=== PATIENT | male | born 2000 | race Caucasian/White ===

== ENCOUNTER 2020-11-03 16:23 | Emergency (ER) | payer MEDICAID, SELFPAY ==
--- NOTE | ~2020-11-03 | CT_ITS ---
EXAMINATION: CT ABDOMEN AND PELVIS WITHOUT CONTRAST CLINICAL INFORMATION: Bilateral flank pain COMPARISON: CT pelvis /2019 TECHNIQUE: Multidetector volumetric imaging was performed from the superior aspect of the liver through the pubic symphysis. Sagittal and coronal reformatted images were obtained on the technologist's workstation. This CT examination was performed using dose optimization techniques as appropriate, variously including the following: *Automated exposure control *Adjustment of mA and/or kV according to patient size (this includes techniques or standardized protocols for targeted exams where dose is matched to indication/reason for exam; i.e. extremities or head) *Use of iterative reconstruction technique DLP: 449 mGy-cm FINDINGS: LUNG BASES: The visualized lung bases are unremarkable. LIVER, GALLBLADDER, AND BILIARY TREE: The liver is normal in size, shape, and attenuation. No focal hepatic lesion or biliary ductal dilatation is present. The gallbladder is unremarkable with no evidence of radiopaque gallstones, gallbladder wall thickening, or obvious pericholecystic inflammatory changes. PANCREAS: Unremarkable. SPLEEN: Unremarkable. ADRENAL GLANDS: Unremarkable. KIDNEYS AND URETERS: The kidneys are normal in size, shape, and attenuation. No hydronephrosis, hydroureter, or calculi seen. No perinephric stranding. BLADDER: Unremarkable. GASTROINTESTINAL TRACT: Diverticular changes present in the colon without diverticulitis. The very proximal jejunal loops are minimally prominent loops and demonstrate some wall thickening. The small and large bowel are otherwise unremarkable. The appendix is none seen with certainty but there is no evidence of appendicitis. ABDOMINAL WALL: No significant hernia is appreciated. LYMPH NODES: No retroperitoneal lymphadenopathy. Bilateral small inguinal lymph nodes are present. VASCULAR: Unremarkable. PELVIC VISCERA: Prostate mildly prominent measuring 4.4 x 3.9 x 4.8 cm. Seminal vesicles appear normal. OSSEOUS STRUCTURES: Unremarkable. CT/CT abdomen pelvis wo con IMPRESSION: A cause for the bilateral flank pain has not been found. Incidental note made of some minimally prominent proximal jejunal loops, colonic diverticula without diverticulitis and mildly prominent prostate.
[2020-11-03 16:32] VITALS: BP 119/75; PULSE 71; RESP 16; TEMP 36.7; O2SAT 98; BMI 28.1
--- NOTE | 2020-11-03 19:28 | ED_ITS ---
HPI - Male Genitourinary General Chief complaint: Urogenital-Male Stated complaint: DISCOMFORT URINATING Time Seen by Provider: 11/03/20 19:25 Source: patient Mode of arrival: ambulatory Limitations: no limitations History of Present Illness HPI Narrative: Patient presents to the ED for dysuria for 5 days and bilateral flank pain for 2 weeks. Patient denies any hematuria. Patient denies any abdominal pain, nausea, or vomiting. Patient is known history of herpes, but denies any lesions. Patient denies any penile discharge or penile lesions. Related Data Previous Rx's Medication Instructions Recorded cephalexin 500 mg PO QID #28 cap 11/03/20 doxycycline hyclate 100 mg PO BID #14 cap 11/03/20 Allergies Allergy/AdvReac Type Severity Reaction Status Date / Time neostigmine [NEOSTIGMINE] Allergy Intermediate NAUSEA & Verified 11/03/20 21:41 VOMITING Review of Systems Review of Systems: Yes all other systems are reviewed and are negative Constitutional: Constitutional: Reports as per HPI and Reports no additional constitutional complaints Eyes: Eyes: Reports as per HPI and Reports no additional eye complaints ENT: Reports system reviewed and no additional complaints, except as documented and Reports as per HPI Cardiovascular: Cardiovascular: Reports as per HPI and Reports no additional cardiovascular complaints Respiratory: Respiratory: Reports as per HPI and Reports no additional respiratory complaints Gastrointestinal: Gastrointestinal: Reports as per HPI and Reports no additional gastrointestinal complaints Genitourinary: Genitourinary: Reports no additional male genitourinary complaints, Reports as per HPI and Reports dysuria Musculoskeletal: Musculoskeletal: Reports no additional musculoskeletal complaints and Reports as per HPI Neurologic: Reports system reviewed and no additional complaints, except as documented and Reports as per HPI Psychiatric: Psychiatric: Reports no additional psychiatric complaints and Reports as per HPI [facility] Past Medical History Medical History (Updated 11/03/20 @ 21:41 by DEON Robles) Herpes Surgical History (Updated 11/03/20 @ 16:35 by Maru Monteiro) H/O hernia repair Social History Social History Advance Directives: No Advance Directives Information Provided: No Physical Exam Vital Signs: Vital Signs: Last Vital Signs Temp 98.0 F 11/03/20 20:14 Pulse 52 11/03/20 20:14 Resp 16 11/03/20 20:14 BP 114/66 11/03/20 20:14 Pulse Ox 98 11/03/20 20:14 Body Mass Index 28.1 Const: General: cooperative, healthy appearing, comfortable, no acute distress, well developed, alert, awake and Physically active Orientation/consciousness: patient oriented x3 HENMT: Head: Yes normal to inspection, Yes No palpable skull fracture present, Yes normocephalic and Yes atraumatic Eyes: General: appearance normal, both eyes and all related structures Neck: Neck: Yes normal visual inspection, Yes full ROM, Yes no lymphadenopathy, Yes no meningeal signs, Yes trachea midline, Yes supple and No tender Chest: Chest palpation & inspection: normal inspection of the chest and normal palpation of entire chest wall Resp: Effort & Inspection: normal respiratory effort and able to speak in complete sentences Auscultation: clear to auscultation bilaterally Cardio: Jugular venous distension: no JVD Heart sounds: S1 normal heart sound present and S2 normal heart sound present GI: Inspection: Yes normal to inspection and No abdominal wall ecchymosis Palpation (GI): Soft to palpation, not firm, nontender, no guarding and not rigid : Other: Penile exam negative for any penile lesions, testicular swelling, penile discharge, testicular redness, scrotum swelling, or testicular tenderness on palpitation General: No CVA tenderness and Yes no CVA tenderness Back/Spine/Pelvis: Back: no CVA tenderness, No CVA tenderness and No back tenderness Skin: General skin exam: no rashes or lesions noted and elasticity normal Neuro: General: patient oriented x3, no meningeal signs and CN's II-XI intact bilaterally Cranial nerves: Yes CN's II-XII intact bilaterally Extrem: General: Yes normal to inspection and Yes full ROM Psych: Appearance: grossly normal, well kempt and not disheveled Course Course Course Narrative: Chlamydia/gonorrhea lab sent. UA sent. Patient was sent for CT scan abdomen pelvis rule out kidney stones. Reevaluation(s) Reevaluation #1: CT abdomen of the pelvis negative for kidney stones. CT&NG pending. UA positive for leuk esterase and white blood cell counts. Patient agreeable to be treated empirically for chlamydia/gonorrhea. Patient will be discharged with Keflex and doxycycline. MDM - Male Genitourinary MDM Narrative Medical decision making narrative: UTI/dysuria Lab Data Labs: Lab Results 11/03/20 Range/Units 19:41 Urine Color STRAW Urine Appearance CLEAR Urine pH 7.0 (5.0-8.0) Ur Specific Holden <= 1.005 (1.005-1.025) Urine Protein NEG (NEG-TRACE) MG/DL Urine Glucose (UA) NEG (NEG) MG/DL Urine Ketones NEG (NEG) MG/DL Urine Blood TRACE (NEG) Urine Nitrite NEG (NEG) Ur Leukocyte Esterase 1+ H (NEG) Urine RBC 0 (0) /HPF Urine WBC 10-14 H (0-4) /HPF Urine WBC Clumps NOTED Ur Squamous Epith Cells 2+ /LPF Ur Renal Epithelial Cell TRACE /LPF Urine Bacteria NONE /LPF Discharge Plan Discharge Clinical Impression: Urinary tract infection, Dysuria Patient Disposition: Home, Self-Care Instructions: Urinary Tract Infection in Men (ED), Dysuria (ED) Additional Instructions: Return to the ED for abdominal pain, fever, chills, flank pain, hematuria, penile lesions, penile discharge, testicular pain, testicular swelling, nausea, vomiting, or any other concerning symptoms. Please follow-up with PCP Prescriptions: New doxycycline hyclate 100 mg capsule 100 mg PO BID Qty: 14 RF: 0 cephalexin 500 mg capsule 500 mg PO QID Qty: 28 RF: 0 Print Language: [place]
[2020-11-03 19:43] LABS: Glucose Urine UA NEG (NEG); Leukocyte Esterase Urine 1+ (NEG); Nitrite Urine NEG (NEG); Specific Gravity - Urine <= 1.005 (1.005-1.025); UACC Culture Trigger YES; Urine Blood TRACE (NEG); Urine Ketones NEG (NEG); Urine Protein NEG (NEG-TRACE)
[2020-11-03 19:45] LABS: Appearance Urine CLEAR; Color Urine STRAW
[2020-11-03 19:54] LABS: RBC Urine 0 /HPF (0)
[2020-11-03 19:55] LABS: Renal Epithelial Cells Urine TRACE /LPF; Squamous Epithelial Cell Urine 2+ /LPF; WBC Clumps Urine NOTED
[2020-11-03 20:14] VITALS: BP 114/66; PULSE 52; RESP 16; TEMP 36.7; O2SAT 98
[2020-11-03] MEDS: cefTRIAXone sodium 500 MG, Lidocaine HCl 1 % MPF 1 ML IM (21:42)
[2020-11-03] MEDS: Ibuprofen 800 MG TABLET PO (21:42)
[2020-11-04 03:37] LABS: CT PCR DETECTED (Not Detect.); NG PCR NOT DETECTED (Not Detect.)
== END 2020-11-03 21:58 | disposition home or self-care (01) ==
PROVIDERS: Physician Assistant; Emergency Provider Internal Medicine
DX: N39.0 Urinary tract infection, site not specified (principal); R30.0 Dysuria; R10.9 Unspecified abdominal pain; Z79.899 Other long term (current) drug therapy
CPT/HCPCS: 74176; 81001; 81003; 87086; 87491; 87591; 99284; J0696

== ENCOUNTER 2020-12-30 14:37 | Emergency (ER) | payer BC, MEDICAID, SELFPAY ==
--- NOTE | ~2020-12-30 | XR_ITS ---
EXAMINATION: XR HAND, RIGHT CLINICAL INFORMATION: Injury and swelling. COMPARISON: None TECHNIQUE: PA, lateral, and oblique views of the right hand. FINDINGS: The bones and soft tissues are normal. No fracture. Alignment is anatomic. Joint spaces are maintained. No erosions or soft tissue calcifications. XR/XR hand RT 2V IMPRESSION: Unremarkable right hand.
[2020-12-30 14:59] VITALS: BP 126/82; PULSE 89; RESP 18; TEMP 36.8; O2SAT 98; BMI 26.6
--- NOTE | 2020-12-30 15:28 | ED_ITS ---
HPI - Extremity Problem General Chief complaint: Extremity Injury, Upper Stated complaint: injury Time Seen by Provider: 12/30/20 15:21 Source: patient Mode of arrival: ambulatory Limitations: no limitations History of Present Illness HPI Narrative: 20 y/o male presenting to the ER with reports of right hand pain after he got angry and punched a door after his girlfriend broke up with him. He had immediate pain and swelling to his middle knuckle on his right hand. No numbness or tingling. Pain is worse with palpation and movement of his fingers. No bruising or deformity. MD Complaint: joint paint Onset (ago): hour(s) Pain Consistency: constant Location: right and upper extremity Severity scale (1-10): 4 Quality: aching Radiation: none Relieving factors: rest Exacerbating factors: range of motion and palpation Related Data Previous Rx's Medication Instructions Recorded cephalexin 500 mg PO QID #28 cap 11/03/20 doxycycline hyclate 100 mg PO BID #14 cap 11/03/20 ibuprofen 600 mg PO Q8H PRN #15 tab 12/30/20 Allergies Allergy/AdvReac Type Severity Reaction Status Date / Time neostigmine [NEOSTIGMINE] Allergy Intermediate NAUSEA & Verified 12/30/20 14:59 VOMITING Review of Systems Review of Systems: Constitutional: No Fever, No Chills Gastrointestinal: No Nausea, No Vomiting Musculoskeletal: + joint pain, No Myalgias Skin: No Skin Lesions, No rash Neuro: No Weakness, No Numbness Psych: No Anxiety/Panic, + Depression Heme/Lymph: No Bruising, No Lymphadenopathy PMFSH Past Medical History Attestation statement: The following information was validated with the patient. Medical History Herpes Surgical History (Updated 11/03/20 @ 16:35 by Maru Monteiro) H/O hernia repair Social History Social History Advance Directives: No Advance Directives Information Provided: Yes Physical Exam Vital Signs: Vital Signs: Last Vital Signs Temp 98.2 F 12/30/20 14:59 Pulse 89 12/30/20 14:59 Resp 18 12/30/20 14:59 BP 126/82 12/30/20 14:59 Pulse Ox 98 12/30/20 14:59 Body Mass Index 26.6 Appearance: Alert. Oriented X3. No acute distress. HEENT: normal inspection CVS: Normal heart rate and rhythm. Pulses normal. Respiratory: No respiratory distress. Skin: Skin warm and dry. Normal skin color. Normal skin turgor. No rashes. Extremities: right hand with 3rd MCP swelling and tenderness, normal ROM with some discomfort, NV intact distally, 2+ radial pulse. no carpal tenderness. no rmal ROM of all fingers. Neuro: Oriented X 3. No motor deficit. No sensory deficit. Equal barrel tester strength. Course Course Course Narrative: 20 yo male presenting with right hand pain after he punched a wall. NV intact. XR pending. Reevaluation(s) Reevaluation #1: XR is negative. Placed in CHAPITO for compression and support, likely contusion. Stable for d/c with NSAID and supportive care. Discharge Plan Discharge Clinical Impression: Contusion of hand Qualifiers: Encounter type: initial encounter Laterality: right Qualified Code(s): S60.221A - Contusion of right hand, initial encounter Patient Disposition: Home, Self-Care Instructions: Contusion in Adults (ED) Additional Instructions: Your x-ray today was normal. You most likely sustained a bruise to the bone. Use CHAPITO wrap to help with pain and swelling. Use ice several times per day for swelling and pain. Take prescribed medication as needed for pain. Follow up with your doctor as needed. Prescriptions: New ibuprofen 600 mg tablet 600 mg PO Q8H PRN (Reason: pain) Qty: 15 RF: 0 No Action doxycycline hyclate 100 mg capsule 100 mg PO BID Qty: 14 RF: 0 cephalexin 500 mg capsule 500 mg PO QID Qty: 28 RF: 0
== END 2020-12-30 15:53 | disposition home or self-care (01) ==
PROVIDERS: Emergency Provider Emergency Medicine
DX: S60.221A Contusion of right hand, initial encounter (principal); W22.09XA Striking against other stationary object, initial encounter; Y93.9 Activity, unspecified; Y92.9 Unspecified place or not applicable; Y99.9 Unspecified external cause status
CPT/HCPCS: 73120; 99283

== ENCOUNTER 2021-02-20 12:33 | Emergency (ER) | payer MEDICAID, SELFPAY ==
[2021-02-20 12:42] VITALS: BP 116/73; PULSE 84; RESP 18; TEMP 36.6; O2SAT 98; BMI 29.1
[2021-02-20 15:12] VITALS: BP 121/70; PULSE 55; RESP 18; TEMP 36.8; O2SAT 99
--- NOTE | 2021-02-20 15:49 | ED_ITS ---
HPI - General Adult General Chief complaint: General Medical Stated complaint: heat rash Time Seen by Provider: 02/20/21 15:39 Source: patient Mode of arrival: ambulatory History of Present Illness HPI narrative: 20-year-old male presenting to the ED complaining of rash to right-side of neck s/p heat wave. Admits rash is pruritic. Denies fever, chills, new exposures including new lotions, detergents, new medications Onset (ago): day(s) Related Data Previous Rx's Medication Instructions Recorded cephalexin 500 mg capsule 500 mg PO QID #28 cap 11/03/20 doxycycline hyclate 100 mg capsule 100 mg PO BID #14 cap 11/03/20 ibuprofen 600 mg tablet 600 mg PO Q8H PRN #15 tab 12/30/20 triamcinolone acetonide 0.025 % 1 appl TOPICAL BID PRN #60 ml 02/20/21 lotion Allergies Allergy/AdvReac Type Severity Reaction Status Date / Time neostigmine [NEOSTIGMINE] Allergy Intermediate NAUSEA & Verified 12/30/20 14:59 VOMITING Review of Systems Review of Systems: Constitutional: No Fever, No Chills ENT/Mouth: No Hoarseness, No sore throat, No Swallowing Difficulty Cardiovascular: No Chest Pain, No SOB Respiratory: No Cough, No Sputum, No Wheezing Gastrointestinal: No Nausea, No Vomiting, No Abdominal pain Musculoskeletal: No joint pain, No Myalgias Skin: No Skin Lesions, + rash Neuro: No Weakness Yes all other systems are reviewed and are negative [facility] Past Medical History Attestation statement: The following information was validated with the patient. Medical History Herpes Surgical History H/O hernia repair Social History Social History Advance Directives: No Advance Directives Information Provided: No Physical Exam Vital Signs: Vital Signs: Last Vital Signs Temp 98.2 F 02/20/21 15:12 Pulse 55 02/20/21 15:12 Resp 18 02/20/21 15:12 BP 121/70 02/20/21 15:12 Pulse Ox 99 02/20/21 15:12 Body Mass Index 29.1 Const: General: cooperative, healthy appearing, no acute distress, well developed, alert and awake Orientation/consciousness: patient oriented x3 Limitations: no limitations HENMT: Head: Yes normal to inspection Ears: hearing grossly normal bilaterally General nose exam: Normal external nose present Face and sinus: Yes normal facial exam Eyes: General: appearance normal, both eyes and all related structures EOM: EOMs intact bilaterally Neck: Neck: Yes full ROM, Yes no lymphadenopathy and Yes no meningeal signs Resp: Effort & Inspection: normal respiratory effort and no respiratory distress Cardio: Rate: regular rate Skin: Other: Erythematous papules noted to right posterior neck fold. No cellulitis. No drainage. No fluctuance/induration. No palm/stool involvement Wounds: no wounds Neuro: General: patient oriented x3 and no meningeal signs Gait exam (Neuro): Normal gait present Extrem: General: Yes normal to inspection Medical Decision Making MDM Narrative Medical decision making narrative: 20-year-old male presenting to the ED complaining of rash to right-side of neck s/p heat wave. On exam VS, NAD/well- appearing, physical exam as above consistent with dermatitis vs eczema vs ? Heat rash Discharge Plan Discharge Clinical Impression: Dermatitis Patient Disposition: Home, Self-Care Instructions: Dermatitis (ED) Additional Instructions: Apply topical hydrocortisone to rash this is a topical steroid Do not apply to face, genital region, hands or feet as may discolor skin Please follow-up with her doctor Avoid the sun for the next few days/heat Prescriptions: New triamcinolone acetonide 0.025 % lotion 1 appl topical BID PRN (Reason: rash) Qty: 60 RF: 0 No Action doxycycline hyclate 100 mg capsule 100 mg PO BID Qty: 14 RF: 0 cephalexin 500 mg capsule 500 mg PO QID Qty: 28 RF: 0 ibuprofen 600 mg tablet 600 mg PO Q8H PRN (Reason: pain) Qty: 15 RF: 0 Referrals: Physician,Unknown [Primary Care Provider] - 2 days Stand Alone Forms: Work/School Release
== END 2021-02-20 16:15 | disposition home or self-care (01) ==
PROVIDERS: Emergency Provider Emergency Medicine
DX: L74.0 Miliaria rubra (principal); L30.9 Dermatitis, unspecified; Z79.899 Other long term (current) drug therapy
CPT/HCPCS: 99283; 99284

== ENCOUNTER 2021-03-07 18:12 | Emergency (ER) | payer BC, MEDICAID, SELFPAY ==
[2021-03-07 18:20] VITALS: BP 121/69; PULSE 86; RESP 18; TEMP 36.7; O2SAT 99; BMI 25.8
--- NOTE | 2021-03-07 20:23 | ED_ITS ---
HPI - Abdominal Pain General Chief Complaint: Abdominal Pain Stated Complaint: Nausea/constipation Time Seen by Provider: 03/07/21 20:07 Source: patient Mode of arrival: ambulatory History of Present Illness HPI narrative: Patient constipated for last 4 days vomited to 3 times a day last vomiting was earlier today feels better now diffuse abdominal pain no fever no chills patient already been COVID vaccinated Related Data Previous Rx's Medication Instructions Recorded cephalexin 500 mg capsule 500 mg PO QID #28 cap 11/03/20 doxycycline hyclate 100 mg capsule 100 mg PO BID #14 cap 11/03/20 ibuprofen 600 mg tablet 600 mg PO Q8H PRN #15 tab 12/30/20 cetirizine 10 mg tablet (Zyrtec) 10 mg PO DAILY PRN #10 tab 02/20/21 diphenhydramine HCl 25 mg tablet 25 mg PO Q6H PRN #14 tab 02/20/21 (Benadryl Allergy) triamcinolone acetonide 0.025 % 1 appl TOPICAL BID PRN #60 ml 02/20/21 lotion Allergies Allergy/AdvReac Type Severity Reaction Status Date / Time neostigmine [NEOSTIGMINE] Allergy Intermediate NAUSEA & Verified 12/30/20 14:59 VOMITING Review of Systems Review of Systems Yes all other systems are reviewed and are negative Physical Exam Vital Signs: Vital Signs: Last Vital Signs Temp 98.1 F 03/07/21 18:20 Pulse 86 03/07/21 18:20 Resp 18 03/07/21 18:20 BP 121/69 03/07/21 18:20 Pulse Ox 99 03/07/21 18:20 Body Mass Index 25.8 Appearance: Alert. Oriented X3. No acute distress. ENT: Pharynx normal. Oral Mucosa moist Neck: Normal inspection. Neck supple. CVS: Normal heart rate and rhythm. Pulses normal. Respiratory: No respiratory distress. Equal air entry bilateral, Abdomen: Soft and nontender. Bowel sounds are present, no mass palpable, no CVA tenderness Skin: Skin warm and dry. Normal skin color. Normal skin turgor. Neuro: Oriented X 3. Discharge Plan Discharge Clinical Impression: Constipation Qualifiers: Constipation type: unspecified constipation type Qualified Code(s): K59.00 - Constipation, unspecified Patient Disposition: Home, Self-Care Instructions: Constipation (ED) Additional Instructions: Drink plenty of fluids Stool softener as advised Prescriptions: No Action doxycycline hyclate 100 mg capsule 100 mg PO BID Qty: 14 RF: 0 cephalexin 500 mg capsule 500 mg PO QID Qty: 28 RF: 0 ibuprofen 600 mg tablet 600 mg PO Q8H PRN (Reason: pain) Qty: 15 RF: 0 triamcinolone acetonide 0.025 % lotion 1 appl topical BID PRN (Reason: rash) Qty: 60 RF: 0 diphenhydramine HCl [Benadryl Allergy] 25 mg tablet 25 mg PO Q6H PRN (Reason: allergic reaction) Qty: 14 RF: 0 cetirizine [Zyrtec] 10 mg tablet 10 mg PO DAILY PRN (Reason: allergy symptoms) Qty: 10 RF: 0 Stand Alone Forms: Work/School Release [facility] Past Medical History Medical History Herpes Surgical History H/O hernia repair Social History Social History Advance Directives: No Advance Directives Information Provided: No
[2021-03-07] MEDS: Milk of Magnesia 30 ML ORAL.SUSP PO (20:37)
[2021-03-07 20:41] VITALS: BP 112/68; PULSE 67; RESP 18; TEMP 35.9; O2SAT 9
== END 2021-03-07 20:48 | disposition home or self-care (01) ==
PROVIDERS: Emergency Provider Internal Medicine
DX: K59.00 Constipation, unspecified (principal); R10.9 Unspecified abdominal pain; Z79.899 Other long term (current) drug therapy
CPT/HCPCS: 99283; 99284

== ENCOUNTER 2022-11-02 11:34 | Emergency (ER) | payer OTHER, SELFPAY ==
[2022-11-02 11:45] VITALS: BP 105/68; PULSE 65; RESP 15; TEMP 36.6; O2SAT 99; BMI 28.1
--- NOTE | 2022-11-02 11:48 | ED_ITS ---
HPI - Eye Problem General Chief complaint: Eye Problems <DEON Todd Last Filed: 11/02/22 11:48> Stated complaint: R eye fluid? <DEON Todd Last Filed: 11/02/22 11:48> Time Seen by Provider: 11/02/22 12:05 <DEON Todd Last Filed: 11/02/22 11:48> Source: patient <DEON Weinstein Last Filed: 11/02/22 18:06> Mode of arrival: ambulatory <DEON Weinstein Last Filed: 11/02/22 18:06> History of Present Illness HPI Narrative: 21-year-old male with no significant past medical history presenting to the ED complaining of right eye irritation/erythema since this morning. States is trying to play video games however eye was bothering him, reports foreign body sensation. Denies known foreign body, injury, fall, vision change/loss, drainage. Wears glasses not contacts <DEON Weinstein Last Filed: 11/02/22 18:06> chief complaint: eye redness <DEON Weinstein Last Filed: 11/02/22 18:06> Related Data Home medications: Previous Rx's Medication Instructions Recorded cephalexin 500 mg capsule 500 mg PO QID #28 caps 11/03/20 doxycycline hyclate 100 mg capsule 100 mg PO BID #14 caps 11/03/20 ibuprofen 600 mg tablet 600 mg PO Q8H PRN pain #15 tabs 12/30/20 cetirizine 10 mg tablet (Zyrtec) 10 mg PO DAILY PRN allergy 02/20/21 symptoms #10 tabs diphenhydramine HCl 25 mg tablet 25 mg PO Q6H PRN allergic reaction 02/20/21 (Benadryl Allergy) #14 tabs triamcinolone acetonide 0.025 % 1 appl topical BID PRN rash #60 mL 02/20/21 lotion <DEON Todd Last Filed: 11/02/22 11:48> Allergies/adverse reactions: Allergies Allergy/AdvReac Type Severity Reaction Status Date / Time neostigmine [NEOSTIGMINE] Allergy Intermediate NAUSEA & Verified 11/02/22 11:45 VOMITING <DEON Todd - Last Filed: 11/02/22 11:48> Review of Systems Review of Systems: Constitutional: No Fever, No Chills, No Fatigue, No Malaise ENT/Mouth: No Hearing loss, No Ear Pain, No Nasal Congestion, No Sinus Pain, No Hoarseness, No sore throat, No Rhinorrhea, No Swallowing Difficulty Eyes: + Eye Pain, + Swelling, + Redness, No Foreign Body, No Discharge, No Vision Changes Cardiovascular: No Chest Pain, No SOB, No Palpitations Respiratory: No Cough, No Sputum, No Dyspnea Gastrointestinal: No Nausea, No Vomiting, No Diarrhea, No Constipation, No Abdo ronel pain Musculoskeletal: No joint pain, No Myalgias, No Joint Swelling Skin: No Skin Lesions, No rash Neuro: No Weakness, No Dizziness, No Headache <DEON Weinstein - Last Filed: 11/02/22 18:06> Yes all other systems are reviewed and are negative <DEON Weinstein - Last Filed: 11/02/22 18:06> Constitutional: Constitutional: Reports as per HPI <DEON Weinstein - Last Filed: 11/02/22 18:06> [facility] Past Medical History Attestation statement: The following information was validated with the patient. <DEON Weinstein - Last Filed: 11/02/22 18:06> Medical History: Medical History Herpes <DEON Todd - Last Filed: 11/02/22 11:48> Surgical History: Surgical History H/O hernia repair <DEON Todd - Last Filed: 11/02/22 11:48> Social History Social History: Social History Advance Directives: No <DEON Todd Last Filed: 11/02/22 11:48> Physical Exam Vital Signs: Vital Signs: Last Vital Signs Temp 98 F 11/02/22 11:45 Pulse 65 11/02/22 11:45 Resp 15 11/02/22 11:45 BP 105/68 11/02/22 11:45 Pulse Ox 99 11/02/22 11:45 O2 Del Method Room Air 11/02/22 11:45 BMI result Body Mass Index 28.1 <DEON Todd - Last Filed: 11/02/22 11:48> Vital Signs: Last Vital Signs Temp 98 F 11/02/22 11:45 Pulse 65 11/02/22 11:45 Resp 15 11/02/22 11:45 BP 105/68 11/02/22 11:45 Pulse Ox 99 11/02/22 11:45 O2 Del Method Room Air 11/02/22 11:45 BMI result Body Mass Index 28.1 <DEON Weinstein - Last Filed: 11/02/22 18:06> Const: General: cooperative, healthy appearing and no acute distress <DEON Weinstein - Last Filed: 11/02/22 18:06> Orientation/consciousness: patient oriented x3 <DEON Weinstein - Last Filed: 11/02/22 18:06> Limitations: no limitations <DEON Weinstein - Last Filed: 11/02/22 18:06> HEENT: Head: Yes normal to inspection and Yes atraumatic <DEON Weinstein - Last Filed: 11/02/22 18:06> Ears: hearing grossly normal bilaterally, external ears normal and mastoids normal <DEON Weinstein - Last Filed: 11/02/22 18:06> General nose exam: Normal external nose present <DEON Weinstein - Last Filed: 11/02/22 18:06> Face and sinus: Yes normal facial exam <DEON Weinstein Last Filed: 11/02/22 18:06> Eyes: General: appearance normal, both eyes and all related structures <DEON Weinstein Last Filed: 11/02/22 18:06> Eyelids: Yes other (+ right upper eyelid internal stye. Mild swelling/erythema, no warmth) <DEON Weinstein Last Filed: 11/02/22 18:06> Sclerae: sclerae normal <DEON Weinstein - Last Filed: 11/02/22 18:06> Corneas: corneas normal and fluorescein used (No uptake) <DEON Weinstein - Last Filed: 11/02/22 18:06> Pupils: Equal, round and reactive pupils present <Silva Dobson PA - Last Filed: 11/02/22 18:06> EOM: EOMs intact bilaterally <DEON Weinstein - Last Filed: 11/02/22 18:06> Direct Ophthalmoscopy: normal light reflex <Silva Dobson PA - Last Filed: 11/02/22 18:06> Neck: Neck: Yes normal visual inspection and Yes no meningeal signs <DEON Weinstein - Last Filed: 11/02/22 18:06> Resp: Effort & Inspection: normal respiratory effort and no respiratory distress <DEON Weinstein - Last Filed: 11/02/22 18:06> Cardio: Rate: regular rate <Silva Dobson PA - Last Filed: 11/02/22 18:06> Skin: Rashes: no rashes <DEON Weinstein - Last Filed: 11/02/22 18:06> Wounds: no wounds <DEON Weinstein - Last Filed: 11/02/22 18:06> Neuro: General: patient oriented x3, tone normal and no meningeal signs <DEON Weinstein - Last Filed: 11/02/22 18:06> Cranial nerves: Yes Equal, round and reactive pupils present <DEON Weinstein - Last Filed: 11/02/22 18:06> Gait exam (Neuro): Normal gait present <DEON Weinstein - Last Filed: 11/02/22 18:06> Extrem: General: Yes normal to inspection <DEON Weinstein - Last Filed: 11/02/22 18:06> Course Course Course Narrative: This is an RME: Additional HPI, ROS, PE not included below will be deferred to primary provider. 21-year-old male presents with foreign body sensation to right eye and he feels like there is fluid in his eyes since this morning. Unsure what it could be. Physical exam with very slight right-sided conjunctival injection. Ordered fluorescein stain and tetracaine <DEON Todd - Last Filed: 11/02/22 11:48> Medications Administered Discontinued Medications Generic Name Dose Route Start Last Admin Trade Name Freq PRN Reason Stop Dose Admin Fluorescein Sodium 1 strip 11/02/22 11:47 11/02/22 12:13 Fluorescein Sodium Strip EYE-BOTH 11/02/22 11:48 1 strip ONCE ONE Administration Tetracaine HCl 1 drop 11/02/22 11:47 11/02/22 12:13 Tetracaine Hcl/Pf 0.5% Oph Atiya 4 Ml Drops EYE-BOTH 11/02/22 11:48 1 drop ONCE ONE Administration <DEON Todd - Last Filed: 11/02/22 11:48> Medications Administered Discontinued Medications Generic Name Dose Route Start Last Admin Trade Name Freq PRN Reason Stop Dose Admin Fluorescein Sodium 1 strip 11/02/22 11:47 11/02/22 12:13 Fluorescein Sodium Strip EYE-BOTH 11/02/22 11:48 1 strip ONCE ONE Administration Tetracaine HCl 1 drop 11/02/22 11:47 11/02/22 12:13 Tetracaine Hcl/Pf 0.5% Oph Atiya 4 Ml Drops EYE-BOTH 11/02/22 11:48 1 drop ONCE ONE Administration <DEON Weinstein - Last Filed: 11/02/22 18:06> Medical Decision Making Medical Decision Making MDM Narrative: 21-year-old male with no significant past medical history presenting to the ED complaining of right eye irritation/erythema since this morning. On exam vital signs stable, NAD, nontoxic appearing, right eye with noted upper eyelid stye without surrounding cellulitis. Fluorescein used without uptake. No corneal abrasion or ulceration. Visual acuity 20/20 bilaterally. Low suspicion for periorbital/orbital cellulitis or blowout fracture Plan: Encouraged warm compresses/massaging area and PCP follow-up as needed Please refer to course for remaining clinical decision making, interpretation of labs/imaging results, and discussions with consultants and/or family members. <DEON Weinstein Last Filed: 11/02/22 18:06> Differential Diagnosis Differential Diagnoses: The differential diagnosis associated with the presentation includes <DEON Weinstein Last Filed: 11/02/22 18:06> As above <DEON Weinstein - Last Filed: 11/02/22 18:06> Admission/Observation Consideration of admission/observation: Escalation of care including admission/observation considered <DEON Weinstein - Last Filed: 11/02/22 18:06> Lab Data MDM Lab Attestation statement: I reviewed the patient's lab results. <DEON Weinstein Last Filed: 11/02/22 18:06> Radiology Impression Discussion of test interpretation with radiology: I have reviewed the radiologist's reading. <DEON Weinstein - Last Filed: 11/02/22 18:06> External Record Review External record reviewed: Inpatient record, Office record, Outpatient record, Prior outpatient labs, Prior outpatient radiology, Primary care record and Outside ED record <DEON Weinstein - Last Filed: 11/02/22 18:06> Discharge Plan Discharge Clinical Impression: Hordeolum <DEON Todd - Last Filed: 11/02/22 11:48> Patient Disposition: Home, Self-Care <DEON Todd Last Filed: 11/02/22 11:48> Instructions: Stguilherme (ED) <DEON Todd - Last Filed: 11/02/22 11:48> Additional Instructions: Avoid putting things in the eye. Apply warm compresses and massage area at home If symptoms persist or worsen, vision change/loss, increasing redness or drainage return to the ED <DEON Todd Last Filed: 11/02/22 11:48> Prescriptions: No Action doxycycline hyclate 100 mg capsule 100 mg PO BID Qty: 14 0RF cephalexin 500 mg capsule 500 mg PO QID Qty: 28 0RF ibuprofen 600 mg tablet 600 mg PO Q8H PRN (Reason: pain) Qty: 15 0RF Rx Instructions: supervising MD Calista Lewis triamcinolone acetonide 0.025 % lotion 1 appl topical BID PRN (Reason: rash) Qty: 60 0RF diphenhydramine HCl [Benadryl Allergy] 25 mg tablet 25 mg PO Q6H PRN (Reason: allergic reaction) Qty: 14 0RF cetirizine [Zyrtec] 10 mg tablet 10 mg PO DAILY PRN (Reason: allergy symptoms) Qty: 10 0RF <DEON Todd - Last Filed: 11/02/22 11:48> Referrals: Physician,Unknown J [Primary Care Provider] - <DEON Todd - Last Filed: 11/02/22 11:48> Interventions: ED Discharge Assessment Last Done: 11/02/22 12:37 <DEON Todd - Last Filed: 11/02/22 11:48> Discharge Date/Time: 11/02/22 12:37 <DEON Todd - Last Filed: 11/02/22 11:48>
[2022-11-02] MEDS: Tetracaine HCl/PF 0.5% Oph Sol 4 ML DROPS 1 DROP EYE-BOTH (12:13)
[2022-11-02] MEDS: Fluorescein Sodium STRIP 1 STRIP EYE-BOTH (12:13)
== END 2022-11-02 12:37 | disposition home or self-care (01) ==
PROVIDERS: Emergency Provider Emergency Medicine
DX: H00.021 Hordeolum internum right upper eyelid (principal); H57.11 Ocular pain, right eye
CPT/HCPCS: 99282; 99283

== ENCOUNTER 2023-02-06 14:30 | Emergency (ER) | payer OTHER, SELFPAY ==
[2023-02-06 14:33] VITALS: BP 110/72; PULSE 67; RESP 16; TEMP 35.9; O2SAT 99; BMI 25.3
--- NOTE | 2023-02-06 14:33 | ED.WOUNDLAC ---
HPI - Wound/Laceration General Chief Complaint: Wound/Laceration Stated Complaint: L leg lac Time Seen by Provider: 02/06/23 14:38 Source: patient Mode of arrival: ambulatory Limitations: no limitations History of Present Illness HPI narrative: 22 yo male presents to the ER for evaluation of left lower leg laceration sustained yesterday on a piece of glass while taking out the trash. He states the cut was deep and bled a lot initially. He held pressure and the bleeding stopped. He went to go to work today and has pain when bearing weight on his left leg so he came to the ER for evaluation. He states the area around the cut is red today and he is worried about infection. No drainage. No fevers Onset (ago): day(s) (1) Extremity Location: left: lower leg Place: home Patient tetanus UTD: No Context: accidental Associated symptoms: pain Related Data Previous Rx's Medication Instructions Recorded cephalexin 500 mg capsule 500 mg PO QID #28 caps 11/03/20 doxycycline hyclate 100 mg capsule 100 mg PO BID #14 caps 11/03/20 ibuprofen 600 mg tablet 600 mg PO Q8H PRN pain #15 tabs 12/30/20 cetirizine 10 mg tablet (Zyrtec) 10 mg PO DAILY PRN allergy 02/20/21 symptoms #10 tabs diphenhydramine HCl 25 mg tablet 25 mg PO Q6H PRN allergic reaction 02/20/21 (Benadryl Allergy) #14 tabs triamcinolone acetonide 0.025 % 1 appl topical BID PRN rash #60 mL 02/20/21 lotion amoxicillin 875 mg-potassium 1 tab PO BID #10 tabs 02/06/23 clavulanate 125 mg tablet ibuprofen 600 mg tablet 600 mg PO Q8H PRN pain #10 tabs 02/06/23 Allergies Allergy/AdvReac Type Severity Reaction Status Date / Time neostigmine [NEOSTIGMINE] Allergy Intermediate NAUSEA & Verified 11/02/22 11:45 VOMITING Review of Systems Review of Systems: Yes all other systems are reviewed and are negative [facility] Past Medical History Medical History Herpes Surgical History H/O hernia repair Physical Exam Vital Signs: Vital Signs: Last Vital Signs Temp 96.7 F L 02/06/23 14:33 Pulse 67 02/06/23 14:33 Resp 16 02/06/23 14:33 BP 110/72 02/06/23 14:33 Pulse Ox 99 02/06/23 14:33 O2 Del Method Room Air 02/06/23 14:33 BMI result Body Mass Index 25.3 Appearance: Alert. Oriented X3. No acute distress. HEENT: normal inspection CVS: Normal heart rate and rhythm. Pulses normal. Respiratory: No respiratory distress. Skin: Skin warm and dry. Normal skin color. Normal skin turgor. No rashes. Extremities: left lower lateral leg with an irregularly shaped laceration, approx 2 cm, epithelialized over without active bleeding. tender. mild surrounding erythema, no induration of fluctuance, no drainage Neuro: Oriented X 3. nonfocal, steady gait Medical Decision Making Medical Decision Making MDM Narrative: 22 yo male presenting to the ER for evaluation of left lower leg laceration and pain. Lac yesterday and does not require sutures today. Steri strips applied for reinforcement. Tdap given. discussed local wound care and signs/symptoms of worsening infection. will d/c with precautionary augmentin due to surrounding erythema, could be early cellulitis. stable for d/c home. Differential Diagnosis Differential Diagnoses: The differential diagnosis associated with the presentation includes superficial laceration, deep laceration, laceration infection, cellulitis, abscess External Record Review External record reviewed: Outpatient record and Prior outpatient labs Tests considered The following testing was considered but not selected: considered x-ray to r/o foreign body Prescription Management I considered prescription management with: Antibiotic Critical Care Time Critical Care Time Critical Care Time: No Discharge Plan Discharge Clinical Impression: Laceration of left leg Patient Disposition: Home, Self-Care Instructions: Laceration Without Closure (ED) Additional Instructions: Take the prescribed antibiotics as directed, complete the entire course and do not miss any doses Use ice to the area and elevate your leg when possible today If you develop new or worsening symptoms call 911 or come back to the ER for further evaluation. Prescriptions: New amoxicillin-pot clavulanate 875-125 mg tablet 1 tab PO BID Qty: 10 0RF ibuprofen 600 mg tablet 600 mg PO Q8H PRN (Reason: pain) Qty: 10 0RF No Action doxycycline hyclate 100 mg capsule 100 mg PO BID Qty: 14 0RF cephalexin 500 mg capsule 500 mg PO QID Qty: 28 0RF ibuprofen 600 mg tablet 600 mg PO Q8H PRN (Reason: pain) Qty: 15 0RF Rx Instructions: supervising MD Calista Lewis triamcinolone acetonide 0.025 % lotion 1 appl topical BID PRN (Reason: rash) Qty: 60 0RF diphenhydramine HCl [Benadryl Allergy] 25 mg tablet 25 mg PO Q6H PRN (Reason: allergic reaction) Qty: 14 0RF cetirizine [Zyrtec] 10 mg tablet 10 mg PO DAILY PRN (Reason: allergy symptoms) Qty: 10 0RF Stand Alone Forms: Work/School Release
[2023-02-06] MEDS: Diphth,Pertus(ACell),Tet Adult 0.5 ML SYRINGE IM (14:42)
== END 2023-02-06 14:55 | disposition home or self-care (01) ==
LOC: HO.ED 14:48
PROVIDERS: Emergency Provider Emergency Medicine
DX: S81.812A Laceration without foreign body, left lower leg, initial encounter (principal); W25.XXXA Contact with sharp glass, initial encounter; M79.662 Pain in left lower leg; Y93.E9 Activity, other interior property and clothing maintenance; Y92.018 Other place in single-family (private) house as the place of occurrence of the external cause; Y99.9 Unspecified external cause status
CPT/HCPCS: 90471; 90715; 99282; 99284

== ENCOUNTER 2023-03-06 17:34 | Emergency (ER) | payer OTHER, SELFPAY ==
--- NOTE | ~2023-03-06 | CT_ITS ---
EXAMINATION: CT ABDOMEN AND PELVIS WITHOUT CONTRAST CLINICAL INFORMATION: Abdominal pain. COMPARISON: None available. TECHNIQUE: Multidetector volumetric imaging was performed from the superior aspect of the liver through the pubic symphysis. Sagittal and coronal reformatted images were obtained on the technologist's workstation. This CT examination was performed using dose optimization techniques as appropriate, variously including the following: *Automated exposure control *Adjustment of mA and/or kV according to patient size (this includes techniques or standardized protocols for targeted exams where dose is matched to indication/reason for exam; i.e. extremities or head) *Use of iterative reconstruction technique DLP: 420 mGy-cm FINDINGS: LUNG BASES: The visualized lung bases are unremarkable. LIVER, GALLBLADDER, AND BILIARY TREE: The liver is normal in size, shape, and attenuation. No focal hepatic lesion or biliary ductal dilatation is present. The gallbladder is unremarkable with no evidence of radiopaque gallstones, gallbladder wall thickening, or obvious pericholecystic inflammatory changes. PANCREAS: Unremarkable. SPLEEN: Unremarkable. ADRENAL GLANDS: Unremarkable. KIDNEYS AND URETERS: The kidneys are normal in size, shape, and attenuation. No hydronephrosis, hydroureter, or calculi seen. No perinephric stranding. BLADDER: Unremarkable. GASTROINTESTINAL TRACT: The small and large bowel are unremarkable. The appendix is not definitively seen as a separate structure. ABDOMINAL WALL: No significant hernia is appreciated. LYMPH NODES: Normal. VASCULAR: Unremarkable. PELVIC VISCERA: Unremarkable. OSSEOUS STRUCTURES: Unremarkable. CT/CT abdomen pelvis wo IV con IMPRESSION: No renal calculi or renal collecting system obstructive change. The appendix is not identified. No acute intra-abdominal process. Fleischner guidelines were followed.
[2023-03-06 17:44] VITALS: BP 135/76; PULSE 98; RESP 16; TEMP 36.5; O2SAT 98; BMI 24.1
[2023-03-06 23:23] VITALS: BP 123/70; PULSE 61; RESP 18; TEMP 36.6; O2SAT 100
--- NOTE | 2023-03-06 23:49 | ED.ABDPAIN ---
HPI - Abdominal Pain General Chief Complaint: Abdominal Pain Stated Complaint: cant use the bathroom / 1week Time Seen by Provider: 03/06/23 23:22 History of Present Illness HPI narrative: Patient is a 22-year-old male presented today with having no good bowel movement for the last week. Associated with nausea. There is no vomiting. Previous history of hernia repair. There is no coughing or congestion or respiratory symptoms. There is no pain on urination. Claims as he had not had a good bowel movement but is passing gas. Patient from home. No chest pain or shortness of breath no diaphoresis. No urinary frequency. Related Data Previous Rx's Medication Instructions Recorded cephalexin 500 mg capsule 500 mg PO QID #28 caps 11/03/20 doxycycline hyclate 100 mg capsule 100 mg PO BID #14 caps 11/03/20 ibuprofen 600 mg tablet 600 mg PO Q8H PRN pain #15 tabs 12/30/20 cetirizine 10 mg tablet (Zyrtec) 10 mg PO DAILY PRN allergy 02/20/21 symptoms #10 tabs diphenhydramine HCl 25 mg tablet 25 mg PO Q6H PRN allergic reaction 02/20/21 (Benadryl Allergy) #14 tabs triamcinolone acetonide 0.025 % 1 appl topical BID PRN rash #60 mL 02/20/21 lotion amoxicillin 875 mg-potassium 1 tab PO BID #10 tabs 02/06/23 clavulanate 125 mg tablet ibuprofen 600 mg tablet 600 mg PO Q8H PRN pain #10 tabs 02/06/23 polyethylene glycol 3350 17 17 g PO DAILY Constipation 1 week 03/07/23 gram/dose oral powder (Miralax) #119 grams Allergies Allergy/AdvReac Type Severity Reaction Status Date / Time neostigmine [NEOSTIGMINE] Allergy Intermediate NAUSEA & Verified 11/02/22 11:45 VOMITING Review of Systems Review of Systems Positive abdominal pain Yes all other systems are reviewed and are negative PMFSH Past Medical History Attestation statement: The following information was validated with the patient. Medical History Herpes Surgical History H/O hernia repair Social History Social History Advance Directives: No Advance Directives Information Provided: Yes Physical Exam ED Vital Signs: Vital Signs - 24 hr 03/06/23 17:44 03/06/23 23:23 03/07/23 02:01 Temperature 97.7 F 97.9 F 98.1 F Pulse Rate 98 61 61 Respiratory Rate 16 18 18 Blood Pressure 135/76 123/70 116/76 Pulse Oximetry 98 100 100 Oxygen Delivery Method Room Air Room Air Room Air BMI result Body Mass Index 24.1 Appearance: Alert. Oriented X3. No acute distress. Eyes: Pupils equal, round and reactive to light. ENT: Pharynx normal. Neck: Normal inspection. Neck supple. No lymph nodes noted. No crepitus CVS: Normal heart rate and rhythm. Pulses normal. Normal S1 and S2 Respiratory: No respiratory distress. Breath sounds normal. No Wheezing. No rales Abdomen: Soft and nontender. No rigidity. No distention. good BS x4 Skin: Skin warm and dry. Normal skin color. Normal skin turgor. Extremities: No lower extremity edema. Neurovascular intact to all extremities. No Lacerations. No Rash Neuro: Oriented X 3. No motor deficit. No sensory deficit. Moving all extermities. No slurred speech Medical Decision Making Medical Decision Making [facility] Narrative: CT scan of the abdomen pelvis showed no evidence of obstruction abscess perforation no evidence for diverticulitis patient well appearing. Given an enema with moderate relief. Will start patient on MiraLax. Close follow-up on an outpatient basis. Differential Diagnosis Obstruction, abscess, perforation Lab Data [facility] Lab Attestation statement: I reviewed the patient's lab results. 03/07/23 00:12 03/07/23 00:10 Labs: Lab Results 03/07/23 03/07/23 03/07/23 Range/Units 00:10 00:10 00:12 WBC 6.4 (4.8-10.8) X10*3/uL RBC 5.19 (4.60-5.80) X10*6/uL Hgb 15.4 (14.0-18.0) g/dl Hct 43.7 (42.0-52.0) % MCV 84.2 (80.0-98.0) fL MCH 29.7 (27.0-33.0) pg MCHC 35.2 (31.0-36.0) g/dl RDW 11.0 (11.0-16.0) % Plt Count 237 (160-400) X10*3/uL MPV 9.0 L (9.4-12.4) fL Immature Gran % (Auto) 0.3 (0.0-0.4) % Neut % (Auto) 35.9 L (45-73) % Lymph % (Auto) 52.4 H (20-40) % Putnam % (Auto) 9.2 (2-11) % Eos % (Auto) 1.7 (0-4) % Baso % (Auto) 0.5 (0-2) % Lymph # (Auto) 3.4 (1.2-4.9) X10*3/uL Putnam # (Auto) 0.6 (0.1-1.2) X10*3/uL Eos # (Auto) 0.1 (0.0-0.4) X10*3/uL Baso # (Auto) 0.0 (0.0-0.2) X10*3/uL Abs Immat Gran (auto) 0.02 (0.00-0.03) X10*3/uL Absolute Neuts (auto) 2.3 (2.0-8.3) x10*3/uL Absolute Nucleated RBC 0.000 (0.0-0.012) X10*3/uL Nucleated RBC % (auto) 0.0 (0.0-0.2) /100WBC Sodium 140 (135-145) mmol/L Potassium 3.9 (3.3-5.1) mmol/L Chloride 106 (96-108) mmol/L Carbon Dioxide 23 (22-29) mmol/L Anion Gap 15 (12-20) BUN 15 (9-16) mg/dL Creatinine 0.90 (0.5-1.4) mg/dL Estim Creat Clear Calc 127.6 Estimated GFR > 60 Random Glucose 86 (60-115) mg/dL Calcium 10.3 H (8.4-10.2) mg/dL Total Bilirubin 1.4 H (0.0-1.0) mg/dL Direct Bilirubin 0.5 (0.0-0.5) mg/dL AST 19 (5-37) U/L ALT 12 (0-40) U/L Alkaline Phosphatase 70 (39-117) U/L Total Protein 8.4 H (6.5-8.0) g/dL Albumin 5.0 (3.5-5.0) g/dL Lipase 15 (8-78) U/L Urine Color Yellow Urine Appearance Clear Urine pH 6.5 (5.0-9.0) Ur Specific Industry >= 1.030 H (1.005-1.025) Urine Protein Negative (Neg-Trace) mg/dL Urine Glucose (UA) Negative (Negative) mg/dL Urine Ketones 80 (Negative) mg/dL Urine Blood Negative (Negative) Urine Nitrite Negative (Negative) Ur Leukocyte Esterase Negative (Negative) Urine RBC 0-2 (0-2) /HPF Urine WBC 0-5 (0-5) /HPF Ur Squamous Epith Cells 0-2 (0-2) /HPF Urine Bacteria None Seen (None Seen) Hyaline Casts 0-2 (0-2) /LPF Independent Interpretation I performed an independent interpretation of an: CT Scan Interpretation: No obvious obstruction abscess perforation Radiology Impression Discussion of test interpretation with radiology: I have reviewed the radiologist's reading. External Record Review External record reviewed: Office record Medications Administered Discontinued Medications Generic Name Dose Route Start Last Admin Trade Name Freq PRN Reason Stop Dose Admin Sodium Biphosphate/Sodium Phosphate 133 ml 03/06/23 23:48 03/07/23 02:00 Sodium Phosphate,Putnam-Dibasic 133 Ml Enema MS 03/06/23 23:49 133 ml ONCE ONE Administration Discharge Plan Discharge Clinical Impression: Constipation Patient Disposition: Home, Self-Care Instructions: Constipation (DC) Prescriptions: New polyethylene glycol 3350 [Miralax] 17 gram/dose powder 17 g PO DAILY 7 Days Qty: 119 0RF No Action doxycycline hyclate 100 mg capsule 100 mg PO BID Qty: 14 0RF cephalexin 500 mg capsule 500 mg PO QID Qty: 28 0RF ibuprofen 600 mg tablet 600 mg PO Q8H PRN (Reason: pain) Qty: 15 0RF Rx Instructions: supervising MD Calista Lewis triamcinolone acetonide 0.025 % lotion 1 appl topical BID PRN (Reason: rash) Qty: 60 0RF diphenhydramine HCl [Benadryl Allergy] 25 mg tablet 25 mg PO Q6H PRN (Reason: allergic reaction) Qty: 14 0RF cetirizine [Zyrtec] 10 mg tablet 10 mg PO DAILY PRN (Reason: allergy symptoms) Qty: 10 0RF amoxicillin-pot clavulanate 875-125 mg tablet 1 tab PO BID Qty: 10 0RF ibuprofen 600 mg tablet 600 mg PO Q8H PRN (Reason: pain) Qty: 10 0RF Referrals: Physician,Unknown J [Primary Care Provider] - 03/09/23
[2023-03-07 00:17] LABS: MANUAL DIFF FLAG NO
[2023-03-07 00:18] LABS: Basophils Percent Auto 0.5 % (0-2); Eosinophils Absolute Auto 0.1 X10*3/uL (0.0-0.4); Eosinophils Percent Auto 1.7 % (0-4); Hematocrit 43.7 % (42.0-52.0); Hemoglobin 15.4 g/dl (14.0-18.0); Imm Gran Abs Auto 0.02 X10*3/uL (0.00-0.03); Imm Gran Pct Auto 0.3 % (0.0-0.4); Lymphocytes Absolute Auto 3.4 X10*3/uL (1.2-4.9); Lymphocytes Percent Auto 52.4 % (20-40); Mean Corpuscular HGB Conc 35.2 g/dl (31.0-36.0); Mean Corpuscular Hemoglobin 29.7 pg (27.0-33.0); Mean Corpuscular Volume 84.2 fL (80.0-98.0); Monocytes Absolute Auto 0.6 X10*3/uL (0.1-1.2); Monocytes Percent Auto 9.2 % (2-11); Neutrophils Absolute Auto 2.3 x10*3/uL (2.0-8.3); Neutrophils Percent Auto 35.9 % (45-73); Platelet Count 237 X10*3/uL (160-400); Red Blood Count 5.19 X10*6/uL (4.60-5.80); White Blood Count 6.4 X10*3/uL (4.8-10.8)
[2023-03-07 00:19] LABS: Appearance Urine Clear; Color Urine Yellow; Glucose Urine UA Negative (Negative); Leukocyte Esterase Urine Negative (Negative); Nitrite Urine Negative (Negative); PH 6.5 (5.0-9.0); Specific Gravity - Urine >= 1.030 (1.005-1.025); Urine Blood Negative (Negative); Urine Ketones 80 mg/dL (Negative); Urine Protein Negative (Neg-Trace)
[2023-03-07 00:21] LABS: Bacteria Urine None Seen (None Seen); Hyaline Casts Urine 0-2 /LPF (0-2); RBC Urine 0-2 /HPF (0-2); Squamous Epithelial Cell Urine 0-2 /HPF (0-2); WBC Urine 0-5 /HPF (0-5)
[2023-03-07 00:35] LABS: Alanine Aminotransferase 12 U/L (0-40); Alkaline Phosphatase 70 U/L (39-117); Anion Gap 15 (12-20); Aspartate Amino Transferase 19 U/L (5-37); Bilirubin Direct 0.5 mg/dL (0.0-0.5); Bilirubin Total 1.4 mg/dL (0.0-1.0); Blood Urea Nitrogen 15 mg/dL (9-16); Calcium 10.3 mg/dL (8.4-10.2); Carbon Dioxide 23 mmol/L (22-29); Chloride 106 mmol/L (96-108); Creatinine Clr Calc Pharmacy 127.6; Estimated Glomerular Filt Rate > 60; Glucose Random 86 mg/dL (60-115); Lipase 15 U/L (8-78); Potassium 3.9 mmol/L (3.3-5.1); Sodium 140 mmol/L (135-145); Total Protein 8.4 g/dL (6.5-8.0)
[2023-03-07] MEDS: Sodium Phosphate,Mono-Dibasic 133 ML ENEMA PR (02:00)
[2023-03-07 02:01] VITALS: BP 116/76; PULSE 61; RESP 18; TEMP 36.7; O2SAT 100
== END 2023-03-07 02:52 | disposition home or self-care (01) ==
PROVIDERS: Emergency Provider Emergency Medicine Emergency Medical Services
DX: K59.00 Constipation, unspecified (principal); R11.0 Nausea; Z79.899 Other long term (current) drug therapy
CPT/HCPCS: 36415; 74176; 80048; 80076; 81001; 83690; 85025; 99284

== ENCOUNTER 2023-04-24 19:33 | Emergency (ER) | payer OTHER, SELFPAY ==
--- NOTE | ~2023-04-24 | CT_ITS ---
EXAMINATION: CT ABDOMEN AND PELVIS WITHOUT CONTRAST CLINICAL INFORMATION: Abdominal pain and constipation COMPARISON: CT abdomen pelvis 11/03/2020 TECHNIQUE: Multidetector volumetric imaging was performed from the superior aspect of the liver through the pubic symphysis. Sagittal and coronal reformatted images were obtained on the technologist's workstation. This CT examination was performed using dose optimization techniques as appropriate, variously including the following: *Automated exposure control *Adjustment of mA and/or kV according to patient size (this includes techniques or standardized protocols for targeted exams where dose is matched to indication/reason for exam; i.e. extremities or head) *Use of iterative reconstruction technique DLP: 412 mGy-cm FINDINGS: LUNG BASES: There is new patchy consolidation seen in the left lower lobe consistent with pneumonia/inflammatory disease LIVER, GALLBLADDER, AND BILIARY TREE: The liver is normal in size, shape, and attenuation. No focal hepatic lesion or biliary ductal dilatation is present. The gallbladder is unremarkable with no evidence of radiopaque gallstones, gallbladder wall thickening, or obvious pericholecystic inflammatory changes. PANCREAS: Unremarkable. SPLEEN: Unremarkable. ADRENAL GLANDS: Unremarkable. KIDNEYS AND URETERS: The kidneys are normal in size, shape, and attenuation. No hydronephrosis, hydroureter, or calculi seen. No perinephric stranding. BLADDER: Unremarkable. GASTROINTESTINAL TRACT: Moderate stool is present in the rectum. No evidence of bowel obstruction. The small and large bowel are unremarkable. The appendix is not seen with certainty but there is no evidence of appendicitis appendicitis. ABDOMINAL WALL: No significant hernia is appreciated. LYMPH NODES: Normal. VASCULAR: Unremarkable. PELVIC VISCERA: Prominent prostate again seen. Seminal vesicles appear normal OSSEOUS STRUCTURES: Unremarkable. CT/CT abdomen pelvis wo IV con IMPRESSION: 1. New patchy consolidation left lower lobe consistent with pneumonia/inflammatory disease. 2. Moderate stool in the rectum. No evidence of bowel obstruction. 3. Other incidental findings as described above including prominent prostate. Fleischner guidelines were followed.
[2023-04-24 19:50] VITALS: BP 118/68; PULSE 73; RESP 18; TEMP 36.9; O2SAT 99; BMI 24.8
--- NOTE | 2023-04-24 19:52 | ED.GENADULT ---
HPI - General Adult General Chief complaint: General Medical Stated complaint: Constipated Time Seen by Provider: 04/24/23 22:50 Source: patient Mode of arrival: ambulatory Limitations: no limitations History of Present Illness HPI narrative: 22 yo male no sign PMH here with chronic intermittent diarrhea then constipation now with c/o constipation though just had BM he sometimes has pain in LLQ as well. no fevers, no urinary symptoms has had this cycle for a long time it is triggered by stress. He does not have a PCP. MD complaint: constipation Onset (ago): month(s) Location: abdomen Radiation: non-radiation and abdomen Severity: mild Quality: aching Pain Consistency: intermittent Relieving factors: other (bowel movement) Exacerbating factors: none Associated symptoms: denies other symptoms Treatments prior to arrival: none Related Data Previous Rx's Medication Instructions Recorded cephalexin 500 mg capsule 500 mg PO QID #28 caps 11/03/20 doxycycline hyclate 100 mg capsule 100 mg PO BID #14 caps 11/03/20 ibuprofen 600 mg tablet 600 mg PO Q8H PRN pain #15 tabs 12/30/20 cetirizine 10 mg tablet (Zyrtec) 10 mg PO DAILY PRN allergy 02/20/21 symptoms #10 tabs diphenhydramine HCl 25 mg tablet 25 mg PO Q6H PRN allergic reaction 02/20/21 (Benadryl Allergy) #14 tabs triamcinolone acetonide 0.025 % 1 appl topical BID PRN rash #60 mL 02/20/21 lotion amoxicillin 875 mg-potassium 1 tab PO BID #10 tabs 02/06/23 clavulanate 125 mg tablet ibuprofen 600 mg tablet 600 mg PO Q8H PRN pain #10 tabs 02/06/23 polyethylene glycol 3350 17 17 g PO DAILY Constipation 1 week 03/07/23 gram/dose oral powder (Miralax) #119 grams dicyclomine 20 mg tablet 20 mg PO QID PRN abdominal pain 04/24/23 #30 tabs polyethylene glycol 3350 17 17 g PO DAILY PRN constipation 04/24/23 gram/dose oral powder (Miralax) #119 grams sennosides 8.6 mg tablet (senna) 8.6 mg PO BEDTIME PRN constipation 04/24/23 #30 tabs Allergies Allergy/AdvReac Type Severity Reaction Status Date / Time neostigmine [NEOSTIGMINE] Allergy Intermediate NAUSEA & Verified 04/24/23 19:54 VOMITING Review of Systems Review of Systems: Constitutional : No Weight loss, No Fever, No Chills Cardiovascular : No Chest Pain, No SOB, NoEdema Respiratory : No Cough, No Sputum, No Wheezing Gastrointestinal : no Nausea, no Vomiting, noDiarrhea, positive abdominal Pain, No Hematochezia, No Melena Genitourinary : No Dysuria, No Urinary Frequency, No Hematuria, No Urgency Musculoskeletal : No joint pain, No Myalgias, No Joint Swelling Skin : No Skin Lesions, No rash Neuro : No Weakness, No Numbness, No Dizziness, No Headache Psych : No Anxiety/Panic, No Depression All other systems reviewed and are negative. [facility] Past Medical History Medical History Herpes Surgical History H/O hernia repair Social History Social History (Updated 04/24/23 @ 23:34 by Geneva Lewis DO) Patient Tobacco Use Status: Tobacco use Unknown Physical Exam ED Vital Signs: Vital Signs - 24 hr 04/24/23 19:50 04/24/23 23:05 Temperature 98.4 F 98.4 F Pulse Rate 73 62 Respiratory Rate 18 16 Blood Pressure 118/68 118/74 Pulse Oximetry 99 99 Oxygen Delivery Method Room Air Room Air BMI result Body Mass Index 24.8 Appearance: Alert. Oriented X3. No acute distress. Eyes: Pupils equal, round and reactive to light. ENT: Pharynx normal. Neck: Normal inspection. Neck supple. CVS: Normal heart rate and rhythm. Pulses normal. Respiratory: No respiratory distress. Breath sounds normal. Abdomen: Soft and nontender. Skin: Skin warm and dry. Normal skin color. Normal skin turgor. Extremities: No lower extremity edema. No calf ttp Neuro: Oriented X 3. No motor deficit. No sensory deficit. Course Course Course Narrative: This is an RME: Additional HPI, ROS, PE not included below will be deferred to primary provider. 22 year old male presenting with constipation associated w/ LLQ pain and episode of nausea and vomiting last week. Has not been passing gas. Last BM was last week and had a similar episode 2 months ago. Plan - imaging, labs Reevaluation(s) Reevaluation #1: CT scan patchy opacity but no WBC count, no fevers, no cough will not treat for pneumonia Medical Decision Making Medical Decision Making MDM Narrative: 22 yo male here with chronic intermittent constipation then diarrhea brought on by stress on and off - no abdominal ttp on exam not toxic, labs normal CT scan has chronic enlarged prostate but no urinary symptoms and no stream issues - will start him on stool regimen and refer to GI and urology. this is not a new issue discussed diet changes and need for outpatient follow up. has benign abdominal exam Differential Diagnosis Differential Diagnoses: The differential diagnosis associated with the presentation includes constipation, IBS Admission/Observation Consideration of admission/observation: Escalation of care including admission/observation considered not toxic, chronic issue can follow up with GI Lab Data MDM Lab Attestation statement: I reviewed the patient's lab results. 04/24/23 21:16 04/24/23 21:16 Labs: Lab Results 04/24/23 Range/Units 21:16 WBC 6.6 (4.8-10.8) X10*3/uL RBC 5.17 (4.60-5.80) X10*6/uL Hgb 15.2 (14.0-18.0) g/dl Hct 43.9 (42.0-52.0) % MCV 84.9 (80.0-98.0) fL MCH 29.4 (27.0-33.0) pg MCHC 34.6 (31.0-36.0) g/dl RDW 11.3 (11.0-16.0) % Plt Count 229 (160-400) X10*3/uL MPV 9.4 (9.4-12.4) fL Immature Gran % (Auto) 0.3 (0.0-0.4) % Neut % (Auto) 43.1 L (45-73) % Lymph % (Auto) 45.0 H (20-40) % Haskell % (Auto) 8.7 (2-11) % Eos % (Auto) 2.4 (0-4) % Baso % (Auto) 0.5 (0-2) % Lymph # (Auto) 3.0 (1.2-4.9) X10*3/uL Haskell # (Auto) 0.6 (0.1-1.2) X10*3/uL Eos # (Auto) 0.2 (0.0-0.4) X10*3/uL Baso # (Auto) 0.0 (0.0-0.2) X10*3/uL Abs Immat Gran (auto) 0.02 (0.00-0.03) X10*3/uL Absolute Neuts (auto) 2.9 (2.0-8.3) x10*3/uL Absolute Nucleated RBC 0.000 (0.0-0.012) X10*3/uL Nucleated RBC % (auto) 0.0 (0.0-0.2) /100WBC Sodium 138 (135-145) mmol/L Potassium 4.0 (3.3-5.1) mmol/L Chloride 104 (96-108) mmol/L Carbon Dioxide 25 (22-29) mmol/L Anion Gap 13 (12-20) BUN 15 (9-16) mg/dL Creatinine 0.86 (0.5-1.4) mg/dL Estim Creat Clear Calc 129.2 Estimated GFR > 60 Random Glucose 91 (60-115) mg/dL Calcium 9.6 D (8.4-10.2) mg/dL Total Bilirubin 0.6 (0.0-1.0) mg/dL AST 19 (5-37) U/L ALT 19 (0-40) U/L Alkaline Phosphatase 87 (39-117) U/L Total Protein 8.0 (6.5-8.0) g/dL Albumin 4.7 (3.5-5.0) g/dL Independent Interpretation I performed an independent interpretation of an: CT Scan (no obstruction) Radiology Impression Discussion of test interpretation with radiology: I have reviewed the radiologist's reading. Independent Historian Clinical information obtained from an independent historian. History obtained from or confirmed by: Spouse External Record Review External record reviewed: Inpatient record Prescription Management I considered prescription management with: Other Discharge Plan Discharge Clinical Impression: Enlarged prostate Irritable bowel Qualifiers: Irritable bowel syndrome type: with both diarrhea and constipation Qualified Code(s): K58.2 - Mixed irritable bowel syndrome Patient Disposition: Home, Self-Care Instructions: Irritable Bowel Syndrome (ED) Additional Instructions: eat a balanced diet. take bentyl for cramps when you need them. please get a primary care doctor you will need to see a urologist for your prostate and a precision instrument and tool maker for your abdominal issues. return for fevers, cough, vomiting, inability to have bowel movement or any other concerns. CT scan showed likely inflammation in left lower lung but given lack of symptoms normal WBC count will not give antibiotics Prescriptions: New dicyclomine 20 mg tablet 20 mg PO QID PRN (Reason: abdominal pain) Qty: 30 0RF sennosides [senna] 8.6 mg tablet 8.6 mg PO BEDTIME PRN (Reason: constipation) Qty: 30 0RF polyethylene glycol 3350 [Miralax] 17 gram/dose powder 17 g PO DAILY PRN (Reason: constipation) Qty: 119 0RF No Action doxycycline hyclate 100 mg capsule 100 mg PO BID Qty: 14 0RF cephalexin 500 mg capsule 500 mg PO QID Qty: 28 0RF ibuprofen 600 mg tablet 600 mg PO Q8H PRN (Reason: pain) Qty: 15 0RF Rx Instructions: supervising MD Calista Lewis triamcinolone acetonide 0.025 % lotion 1 appl topical BID PRN (Reason: rash) Qty: 60 0RF diphenhydramine HCl [Benadryl Allergy] 25 mg tablet 25 mg PO Q6H PRN (Reason: allergic reaction) Qty: 14 0RF cetirizine [Zyrtec] 10 mg tablet 10 mg PO DAILY PRN (Reason: allergy symptoms) Qty: 10 0RF amoxicillin-pot clavulanate 875-125 mg tablet 1 tab PO BID Qty: 10 0RF ibuprofen 600 mg tablet 600 mg PO Q8H PRN (Reason: pain) Qty: 10 0RF polyethylene glycol 3350 [Miralax] 17 gram/dose powder 17 g PO DAILY 7 Days Qty: 119 0RF Referrals: Sagrario Loco FNP-REYNALDO [Nurse Practitioner] - (call to schedule appointment) Tavon Christian MD [Physician] - (call to schedule appointment)
[2023-04-24 21:27] LABS: MANUAL DIFF FLAG NO
[2023-04-24 21:40] LABS: Basophils Percent Auto 0.5 % (0-2); Eosinophils Absolute Auto 0.2 X10*3/uL (0.0-0.4); Eosinophils Percent Auto 2.4 % (0-4); Hematocrit 43.9 % (42.0-52.0); Hemoglobin 15.2 g/dl (14.0-18.0); Imm Gran Abs Auto 0.02 X10*3/uL (0.00-0.03); Imm Gran Pct Auto 0.3 % (0.0-0.4); Mean Corpuscular HGB Conc 34.6 g/dl (31.0-36.0); Mean Corpuscular Hemoglobin 29.4 pg (27.0-33.0); Mean Corpuscular Volume 84.9 fL (80.0-98.0); Mean Platelet Volume 9.4 fL (9.4-12.4); Monocytes Absolute Auto 0.6 X10*3/uL (0.1-1.2); Monocytes Percent Auto 8.7 % (2-11); Neutrophils Absolute Auto 2.9 x10*3/uL (2.0-8.3); Neutrophils Percent Auto 43.1 % (45-73); Platelet Count 229 X10*3/uL (160-400); Red Blood Count 5.17 X10*6/uL (4.60-5.80); Red Cell Distribution Width 11.3 % (11.0-16.0); White Blood Count 6.6 X10*3/uL (4.8-10.8)
[2023-04-24 21:48] LABS: Alanine Aminotransferase 19 U/L (0-40); Albumin Level 4.7 g/dL (3.5-5.0); Alkaline Phosphatase 87 U/L (39-117); Anion Gap 13 (12-20); Aspartate Amino Transferase 19 U/L (5-37); Bilirubin Total 0.6 mg/dL (0.0-1.0); Blood Urea Nitrogen 15 mg/dL (9-16); Calcium 9.6 mg/dL (8.4-10.2); Carbon Dioxide 25 mmol/L (22-29); Chloride 104 mmol/L (96-108); Creatinine Clr Calc Pharmacy 129.2; Estimated Glomerular Filt Rate > 60; Glucose Random 91 mg/dL (60-115); Sodium 138 mmol/L (135-145)
[2023-04-24 23:05] VITALS: BP 118/74; PULSE 62; RESP 16; TEMP 36.9; O2SAT 99
[2023-04-25 00:23] VITALS: BP 104/64; PULSE 61; RESP 16; TEMP 37.1; O2SAT 99
== END 2023-04-25 00:30 | disposition home or self-care (01) ==
PROVIDERS: Physician Assistant; Emergency Provider Emergency Medicine
DX: K58.2 Mixed irritable bowel syndrome (principal); N40.0 Benign prostatic hyperplasia without lower urinary tract symptoms; R10.32 Left lower quadrant pain; Z79.899 Other long term (current) drug therapy
CPT/HCPCS: 36415; 74176; 80053; 85025; 99283; 99284

== ENCOUNTER 2023-05-08 20:37 | Emergency (ER) | payer OTHER, SELFPAY ==
--- NOTE | ~2023-05-08 | XR_ITS ---
EXAMINATION: XR CHEST CLINICAL INFORMATION: Productive cough COMPARISON: CT abdomen pelvis 04/24/2023 TECHNIQUE: 2 views of the chest were obtained. FINDINGS: The heart and pulmonary vessels appear normal. No infiltrates, effusions or lung masses are seen. The patchy consolidation seen on 04/24/2023 CT scan is not appreciated on the current study. XR/XR chest 2V IMPRESSION: No acute intrathoracic disease.
[2023-05-08 20:42] VITALS: BP 128/79; PULSE 88; RESP 16; TEMP 36.3; O2SAT 97; BMI 24.8
--- NOTE | 2023-05-08 20:42 | ED.URI ---
HPI - URI/Sore Throat General Chief Complaint: Upper Respiratory Symptoms Stated Complaint: Flu like symptoms Time Seen by Provider: 05/08/23 21:14 Related Data Previous Rx's Medication Instructions Recorded cephalexin 500 mg capsule 500 mg PO QID #28 caps 11/03/20 doxycycline hyclate 100 mg capsule 100 mg PO BID #14 caps 11/03/20 ibuprofen 600 mg tablet 600 mg PO Q8H PRN pain #15 tabs 12/30/20 cetirizine 10 mg tablet (Zyrtec) 10 mg PO DAILY PRN allergy 02/20/21 symptoms #10 tabs diphenhydramine HCl 25 mg tablet 25 mg PO Q6H PRN allergic reaction 02/20/21 (Benadryl Allergy) #14 tabs triamcinolone acetonide 0.025 % 1 appl topical BID PRN rash #60 mL 02/20/21 lotion amoxicillin 875 mg-potassium 1 tab PO BID #10 tabs 02/06/23 clavulanate 125 mg tablet ibuprofen 600 mg tablet 600 mg PO Q8H PRN pain #10 tabs 02/06/23 polyethylene glycol 3350 17 17 g PO DAILY Constipation 1 week 03/07/23 gram/dose oral powder (Miralax) #119 grams dicyclomine 20 mg tablet 20 mg PO QID PRN abdominal pain 04/24/23 #30 tabs polyethylene glycol 3350 17 17 g PO DAILY PRN constipation 04/24/23 gram/dose oral powder (Miralax) #119 grams sennosides 8.6 mg tablet (senna) 8.6 mg PO BEDTIME PRN constipation 04/24/23 #30 tabs dextromethorphan polistirex 30 10 ml PO Q12H cough #89 mL 05/08/23 mg/5 mL oral susp ext.release 12hr (Delsym 12 hour) Allergies Allergy/AdvReac Type Severity Reaction Status Date / Time neostigmine [NEOSTIGMINE] Allergy Intermediate NAUSEA & Verified 04/24/23 19:54 VOMITING PMFSH Past Medical History Medical History Herpes Surgical History H/O hernia repair Social History Social History (Updated 04/24/23 @ 23:34 by Geneva Lewis DO) Patient Tobacco Use Status: Tobacco use Unknown Advance Directives: No Physical Exam Vital Signs: Vital Signs: Last Vital Signs Temp 97.4 F 05/08/23 20:42 Pulse 88 05/08/23 20:42 Resp 16 05/08/23 20:42 BP 128/79 05/08/23 20:42 Pulse Ox 97 05/08/23 20:42 O2 Del Method Room Air 05/08/23 20:42 BMI result Body Mass Index 24.8 Course Course Course Narrative: RME: 22-year-old male with no significant past medical history presenting to the ED complaining of URI sx x 1 week w/productive cough, SOB, rhinorrhea, L ear pain, & sore thoat. +sick contacts. denies fever, travel Viral testing, Rapid strep, CXR ordered Full HPI, ROS and PE to be performed by primary ED provider. Medical Decision Making Lab Data Labs: Lab Results 05/08/23 Range/Units 21:09 COVID-19 ([facility]) Negative (Negative) COVID-19 Clin Com See Note Influenza Type A ([facility]) Negative (Negative) Influenza Type B ([facility]O) Negative (Negative) Influenza A & B Note See Note S. pyogenes GrpA [facility] Negative (Negative) Discharge Plan Discharge Clinical Impression: Upper respiratory infection Patient Disposition: Home, Self-Care Instructions: Acute Bronchitis (ED) Additional Instructions: He was seen emergency room for cough, symptoms are likely secondary to upper respiratory tract infection. COVID flu RSV swab is pending, you can follow results my chart. Your chest x-ray was unremarkable and at this time we expect symptoms to improve within a few days. Use ibuprofen 400 mg up to 4 times a day for control of body aches and cough. Use Delsym 10 mL twice a day for cough control Return to emergency room if your symptoms worsen otherwise follow-up with your primary care physician as scheduled. Prescriptions: New dextromethorphan polistirex [Delsym 12 hour] 30 mg/5 mL suspension,extended rel 12 hr 10 ml PO Q12H MDD 20ml Qty: 89 0RF No Action doxycycline hyclate 100 mg capsule 100 mg PO BID Qty: 14 0RF cephalexin 500 mg capsule 500 mg PO QID Qty: 28 0RF ibuprofen 600 mg tablet 600 mg PO Q8H PRN (Reason: pain) Qty: 15 0RF Rx Instructions: supervising MD Calista Lewis triamcinolone acetonide 0.025 % lotion 1 appl topical BID PRN (Reason: rash) Qty: 60 0RF diphenhydramine HCl [Benadryl Allergy] 25 mg tablet 25 mg PO Q6H PRN (Reason: allergic reaction) Qty: 14 0RF cetirizine [Zyrtec] 10 mg tablet 10 mg PO DAILY PRN (Reason: allergy symptoms) Qty: 10 0RF amoxicillin-pot clavulanate 875-125 mg tablet 1 tab PO BID Qty: 10 0RF ibuprofen 600 mg tablet 600 mg PO Q8H PRN (Reason: pain) Qty: 10 0RF polyethylene glycol 3350 [Miralax] 17 gram/dose powder 17 g PO DAILY 7 Days Qty: 119 0RF dicyclomine 20 mg tablet 20 mg PO QID PRN (Reason: abdominal pain) Qty: 30 0RF sennosides [senna] 8.6 mg tablet 8.6 mg PO BEDTIME PRN (Reason: constipation) Qty: 30 0RF polyethylene glycol 3350 [Miralax] 17 gram/dose powder 17 g PO DAILY PRN (Reason: constipation) Qty: 119 0RF Stand Alone Forms: Work/School Release Interventions: ED Discharge Assessment Last Done: 05/08/23 21:40 Discharge Date/Time: 05/08/23 21:40
--- NOTE | 2023-05-08 21:12 | MHC.EDTECH ---
Patient brought in from triage area,covid,flu,and strep were obtained and sent to lab. Patent then brought to [facility].
--- NOTE | 2023-05-08 21:22 | ED.URI ---
HPI - URI/Sore Throat General Chief Complaint: Upper Respiratory Symptoms Stated Complaint: Flu like symptoms Time Seen by Provider: 05/08/23 21:14 History of Present Illness HPI Narrative: 22 years old with no significant past medical history, presents emergency room for 1 week history of sore throat, cough and shortness of breath. Patient reports that at night he feels cold he however has not measured his temperature. Patient denies chest pain, abdominal pain nausea or vomiting. Patient reports that he has yellow phlegm every time he coughs. At home he has tried cough medicine without improvement of his symptoms. Patient does not use NSAID or Tylenol. Patient reports that at work several people have had upper respiratory tract infection. Related Data Previous Rx's Medication Instructions Recorded cephalexin 500 mg capsule 500 mg PO QID #28 caps 11/03/20 doxycycline hyclate 100 mg capsule 100 mg PO BID #14 caps 11/03/20 ibuprofen 600 mg tablet 600 mg PO Q8H PRN pain #15 tabs 12/30/20 cetirizine 10 mg tablet (Zyrtec) 10 mg PO DAILY PRN allergy 02/20/21 symptoms #10 tabs diphenhydramine HCl 25 mg tablet 25 mg PO Q6H PRN allergic reaction 02/20/21 (Benadryl Allergy) #14 tabs triamcinolone acetonide 0.025 % 1 appl topical BID PRN rash #60 mL 02/20/21 lotion amoxicillin 875 mg-potassium 1 tab PO BID #10 tabs 02/06/23 clavulanate 125 mg tablet ibuprofen 600 mg tablet 600 mg PO Q8H PRN pain #10 tabs 02/06/23 polyethylene glycol 3350 17 17 g PO DAILY Constipation 1 week 03/07/23 gram/dose oral powder (Miralax) #119 grams dicyclomine 20 mg tablet 20 mg PO QID PRN abdominal pain 04/24/23 #30 tabs polyethylene glycol 3350 17 17 g PO DAILY PRN constipation 04/24/23 gram/dose oral powder (Miralax) #119 grams sennosides 8.6 mg tablet (senna) 8.6 mg PO BEDTIME PRN constipation 04/24/23 #30 tabs dextromethorphan polistirex 30 10 ml PO Q12H cough #89 mL 05/08/23 mg/5 mL oral susp ext.release 12hr (Delsym 12 hour) Allergies Allergy/AdvReac Type Severity Reaction Status Date / Time neostigmine [NEOSTIGMINE] Allergy Intermediate NAUSEA & Verified 04/24/23 19:54 VOMITING Review of Systems Review of Systems: Yes all other systems are reviewed and are negative PENDING SALE TO [facility] Past Medical History Medical History Herpes Surgical History H/O hernia repair Social History Social History (Updated 04/24/23 @ 23:34 by Geneva Lewis DO) Patient Tobacco Use Status: Tobacco use Unknown Advance Directives: No Physical Exam Vital Signs: Vital Signs: Last Vital Signs Temp 97.4 F 05/08/23 20:42 Pulse 88 05/08/23 20:42 Resp 16 05/08/23 20:42 BP 128/79 05/08/23 20:42 Pulse Ox 97 05/08/23 20:42 O2 Del Method Room Air 05/08/23 20:42 BMI result Body Mass Index 24.8 General: Alert, Not in Distress Skin: No rash, warm HEENT: Atraumatic, No Exudate or Pharyngeal Erythema Resp: Normal Breath sounds bilaterally Cardio: Regular rate and Rhythm, Normal S1, S2 ABD: Abd soft, non tender, no guarding or rebound. Normal Bowel sounds. : No cva tenderness Neuro: Alert, oriented x4, PERRL Strenght 5/5 on all extremities Sensation is preserved in both lower and upper extremities Index to nose: normal Cranial Nerves II-XII grossly intact No dysarthria, or aphasia No neglet. Visual ann are normal bilaterally Psych: Cooperative, NO SI Medical Decision Making Medical Decision Making MDM Narrative: 22 years old with no significant past medical history, presents emergency room for one-week history of cough, sore throat. Physical exam is reassuring and patient chest x-ray done prior assessment is the called hours pending at this time she management. Possible differential diagnosis includes URI, bronchitis, pharyngitis less likely pneumonia considered a negative chest x-ray. Patient has normal vital signs in the emergency room. at this time he does not requires further observation, admission or further testing. Patient was recommended to use NSAID and will add dextromethorphan for symptom control. Will DC home Admission/Observation Consideration of admission/observation: Escalation of care including admission/observation considered Independent Interpretation I performed an independent interpretation of an: Plain X-Ray (normal CXR) Tests considered The following testing was considered but not selected: cbc, bmp Discharge Plan Discharge Clinical Impression: Upper respiratory infection Patient Disposition: Home, Self-Care Instructions: Acute Bronchitis (ED) Additional Instructions: He was seen emergency room for cough, symptoms are likely secondary to upper respiratory tract infection. COVID flu RSV swab is pending, you can follow results my chart. Your chest x-ray was unremarkable and at this time we expect symptoms to improve within a few days. Use ibuprofen 400 mg up to 4 times a day for control of body aches and cough. Use Delsym 10 mL twice a day for cough control Return to emergency room if your symptoms worsen otherwise follow-up with your primary care physician as scheduled. Prescriptions: New dextromethorphan polistirex [Delsym 12 hour] 30 mg/5 mL suspension,extended rel 12 hr 10 ml PO Q12H MDD 20ml Qty: 89 0RF No Action doxycycline hyclate 100 mg capsule 100 mg PO BID Qty: 14 0RF cephalexin 500 mg capsule 500 mg PO QID Qty: 28 0RF ibuprofen 600 mg tablet 600 mg PO Q8H PRN (Reason: pain) Qty: 15 0RF Rx Instructions: supervising MD Calista Lewis triamcinolone acetonide 0.025 % lotion 1 appl topical BID PRN (Reason: rash) Qty: 60 0RF diphenhydramine HCl [Benadryl Allergy] 25 mg tablet 25 mg PO Q6H PRN (Reason: allergic reaction) Qty: 14 0RF cetirizine [Zyrtec] 10 mg tablet 10 mg PO DAILY PRN (Reason: allergy symptoms) Qty: 10 0RF amoxicillin-pot clavulanate 875-125 mg tablet 1 tab PO BID Qty: 10 0RF ibuprofen 600 mg tablet 600 mg PO Q8H PRN (Reason: pain) Qty: 10 0RF polyethylene glycol 3350 [Miralax] 17 gram/dose powder 17 g PO DAILY 7 Days Qty: 119 0RF dicyclomine 20 mg tablet 20 mg PO QID PRN (Reason: abdominal pain) Qty: 30 0RF sennosides [senna] 8.6 mg tablet 8.6 mg PO BEDTIME PRN (Reason: constipation) Qty: 30 0RF polyethylene glycol 3350 [Miralax] 17 gram/dose powder 17 g PO DAILY PRN (Reason: constipation) Qty: 119 0RF
[2023-05-08 21:25] LABS: IDNOW Serial# 08D9AD1C; Strep A Nucleic Acid Negative (Negative)
[2023-05-08 21:31] LABS: COVID-19 Test Negative (Negative); IDNOW Serial# BCCEAD1C
[2023-05-08 22:23] LABS: IDNOW Serial# 9DB6401D
[2023-05-08 22:24] LABS: Influenza A Negative (Negative); Influenza B2 Negative (Negative)
== END 2023-05-08 21:40 | disposition home or self-care (01) ==
PROVIDERS: Physician Assistant; Emergency Provider Student in an Organized Health Care Education/Training Program
DX: J06.9 Acute upper respiratory infection, unspecified (principal); J02.9 Acute pharyngitis, unspecified; R05.9 Cough, unspecified; Z11.52 Encounter for screening for COVID-19
CPT/HCPCS: 71046; 87502; 87635; 87651; 99282; 99283

== ENCOUNTER 2023-06-04 17:49 | Emergency (ER) | payer OTHER, SELFPAY ==
--- NOTE | ~2023-06-04 | US_ITS ---
EXAMINATION: US SCROTUM CLINICAL INFORMATION: Left testicular pain. Rule out torsion.. COMPARISON: None available. TECHNIQUE: A sonogram of the scrotum was performed assessing meng-scale appearance and color Doppler flow. Spectral Doppler analysis of the arterial and venous flow were performed in the testes bilaterally. FINDINGS: RIGHT: Right testicle measures 5.2 x 2.5 x 3.2 cm, volume 2.2 mL. No focal testicular parenchymal lesions are visualized. Spectral Doppler analysis of the arterial and venous flow is normal in the right testis. Right epididymal head is normal in size. Small anechoic cyst in the epidural head measures 0.9 x 0.7 x 0.5 cm. No right hydrocele or varicocele is seen. Right epididymal Doppler flow is normal. LEFT: Left testicle measures 4.9 x 2.3 x 3.0 cm, volume 18 mL. No focal testicular parenchymal lesions are visualized. Spectral Doppler analysis of the arterial and venous flow is normal in the left testis. Left epididymal head is normal in size. A small epidural head cysts measuring 0.3 x 0.2 x 0.3 cm. No left hydrocele or varicocele is seen. Left epididymal Doppler flow is normal. US/US scrotum IMPRESSION: 1. Bilateral epididymal head cysts. Otherwise both testes are unremarkable. No hydrocele or varicocele. Normal vascular flow seen to both testes and epididymis.
--- NOTE | ~2023-06-04 | US_ITS ---
EXAMINATION: US SCROTUM CLINICAL INFORMATION: Left testicular pain. Rule out torsion.. COMPARISON: None available. TECHNIQUE: A sonogram of the scrotum was performed assessing meng-scale appearance and color Doppler flow. Spectral Doppler analysis of the arterial and venous flow were performed in the testes bilaterally. FINDINGS: RIGHT: Right testicle measures 5.2 x 2.5 x 3.2 cm, volume 2.2 mL. No focal testicular parenchymal lesions are visualized. Spectral Doppler analysis of the arterial and venous flow is normal in the right testis. Right epididymal head is normal in size. Small anechoic cyst in the epidural head measures 0.9 x 0.7 x 0.5 cm. No right hydrocele or varicocele is seen. Right epididymal Doppler flow is normal. LEFT: Left testicle measures 4.9 x 2.3 x 3.0 cm, volume 18 mL. No focal testicular parenchymal lesions are visualized. Spectral Doppler analysis of the arterial and venous flow is normal in the left testis. Left epididymal head is normal in size. A small epidural head cysts measuring 0.3 x 0.2 x 0.3 cm. No left hydrocele or varicocele is seen. Left epididymal Doppler flow is normal. US/US scrotum doppler IMPRESSION: 1. Bilateral epididymal head cysts. Otherwise both testes are unremarkable. No hydrocele or varicocele. Normal vascular flow seen to both testes and epididymis.
[2023-06-04 18:11] VITALS: BP 119/62; PULSE 68; RESP 18; TEMP 37.2; O2SAT 98; BMI 26.5
--- NOTE | 2023-06-04 18:11 | ED_ITS ---
HPI - Abdominal Pain General Chief Complaint: Urogenital-Male Stated Complaint: LT testicle/rectal pain Time Seen by Provider: 06/04/23 23:44 Source: patient Mode of arrival: ambulatory Limitations: no limitations History of Present Illness HPI narrative: Patient came for nonspecific feeling of the left testicle earlier today no trauma no discharge from the penis no history of STI Related Data Previous Rx's Medication Instructions Recorded cephalexin 500 mg capsule 500 mg PO QID #28 caps 11/03/20 doxycycline hyclate 100 mg capsule 100 mg PO BID #14 caps 11/03/20 ibuprofen 600 mg tablet 600 mg PO Q8H PRN pain #15 tabs 12/30/20 cetirizine 10 mg tablet (Zyrtec) 10 mg PO DAILY PRN allergy 02/20/21 symptoms #10 tabs diphenhydramine HCl 25 mg tablet 25 mg PO Q6H PRN allergic reaction 02/20/21 (Benadryl Allergy) #14 tabs triamcinolone acetonide 0.025 % 1 appl topical BID PRN rash #60 mL 02/20/21 lotion amoxicillin 875 mg-potassium 1 tab PO BID #10 tabs 02/06/23 clavulanate 125 mg tablet ibuprofen 600 mg tablet 600 mg PO Q8H PRN pain #10 tabs 02/06/23 polyethylene glycol 3350 17 17 g PO DAILY Constipation 1 week 03/07/23 gram/dose oral powder (Miralax) #119 grams dicyclomine 20 mg tablet 20 mg PO QID PRN abdominal pain 04/24/23 #30 tabs polyethylene glycol 3350 17 17 g PO DAILY PRN constipation 04/24/23 gram/dose oral powder (Miralax) #119 grams sennosides 8.6 mg tablet (senna) 8.6 mg PO BEDTIME PRN constipation 04/24/23 #30 tabs dextromethorphan polistirex 30 10 ml PO Q12H cough #89 mL 05/08/23 mg/5 mL oral susp ext.release 12hr (Delsym 12 hour) Allergies Allergy/AdvReac Type Severity Reaction Status Date / Time neostigmine [NEOSTIGMINE] Allergy Intermediate NAUSEA & Verified 04/24/23 19:54 VOMITING Review of Systems Review of Systems Yes all other systems are reviewed and are negative [facility] Past Medical History Medical History Herpes Surgical History H/O hernia repair Social History Patient Tobacco Use Status: Tobacco use Unknown Advance Directives: No Advance Directives Information Provided: Yes Physical Exam ED Vital Signs: Vital Signs - 24 hr 06/04/23 18:11 06/04/23 22:40 Temperature 98.9 F Pulse Rate 68 63 Respiratory Rate 18 18 Blood Pressure 119/62 118/66 Pulse Oximetry 98 99 Oxygen Delivery Method Room Air Room Air BMI result Body Mass Index 26.5 Male General Exam: Yes normal external exam Penis: normal penis and uncircumcised Meatus: meatus normal and no meatla discharge Scrotum: scrotum normal, testes descended bilaterally and no scrotal swelling Testes: Testes normal and epididymides normal Course Course Course Narrative: This is a rapid medical exam. Deferred additional HPI, ROS, PE to primary provider. 22 yo male with pmh ADHD here with complaints of left testicle pain today, rectal pain No penile discharge/urinary symptoms. Denies new sexual partners or concern for STD Will obtain UA, CT NG, testicle US VSS Medical Decision Making Medical Decision Making MDM Narrative: Patient has small bilateral epididymal cyst will discharge patient home advise follow urologist Lab Data MDM Lab Attestation statement: I reviewed the patient's lab results. Labs: Lab Results 06/04/23 Range/Units 22:10 Urine Color Yellow Urine Appearance Clear Urine pH 6.5 (5.0-9.0) Ur Specific [place] 1.025 (1.005-1.025) Urine Protein Negative (Neg-Trace) mg/dL Urine Glucose (UA) Negative (Negative) mg/dL Urine Ketones Negative (Negative) mg/dL Urine Blood Negative (Negative) Urine Nitrite Negative (Negative) Ur Leukocyte Esterase Negative (Negative) Independent Interpretation I performed an independent interpretation of an: Ultrasound Radiology Impression Discussion of test interpretation with radiology: I have reviewed the radiologist's reading. Discharge Plan Discharge Clinical Impression: Cyst of epididymis Patient Disposition: Home, Self-Care Instructions: Testicle Pain (ED) Additional Instructions: You have small cyst in epididymis which are benign and not causing a problem Prescriptions: No Action doxycycline hyclate 100 mg capsule 100 mg PO BID Qty: 14 0RF cephalexin 500 mg capsule 500 mg PO QID Qty: 28 0RF ibuprofen 600 mg tablet 600 mg PO Q8H PRN (Reason: pain) Qty: 15 0RF Rx Instructions: supervising MD Calista Lewis triamcinolone acetonide 0.025 % lotion 1 appl topical BID PRN (Reason: rash) Qty: 60 0RF diphenhydramine HCl [Benadryl Allergy] 25 mg tablet 25 mg PO Q6H PRN (Reason: allergic reaction) Qty: 14 0RF cetirizine [Zyrtec] 10 mg tablet 10 mg PO DAILY PRN (Reason: allergy symptoms) Qty: 10 0RF amoxicillin-pot clavulanate 875-125 mg tablet 1 tab PO BID Qty: 10 0RF ibuprofen 600 mg tablet 600 mg PO Q8H PRN (Reason: pain) Qty: 10 0RF polyethylene glycol 3350 [Miralax] 17 gram/dose powder 17 g PO DAILY 7 Days Qty: 119 0RF dicyclomine 20 mg tablet 20 mg PO QID PRN (Reason: abdominal pain) Qty: 30 0RF sennosides [senna] 8.6 mg tablet 8.6 mg PO BEDTIME PRN (Reason: constipation) Qty: 30 0RF polyethylene glycol 3350 [Miralax] 17 gram/dose powder 17 g PO DAILY PRN (Reason: constipation) Qty: 119 0RF dextromethorphan polistirex [Delsym 12 hour] 30 mg/5 mL suspension,extended rel 12 hr 10 ml PO Q12H MDD 20ml Qty: 89 0RF Stand Alone Forms: Work/School Release Discharge Date/Time: 06/05/23 00:05
[2023-06-04 22:20] LABS: Appearance Urine Clear; Color Urine Yellow; Glucose Urine UA Negative (Negative); Leukocyte Esterase Urine Negative (Negative); Nitrite Urine Negative (Negative); PH 6.5 (5.0-9.0); Specific Gravity - Urine 1.025 (1.005-1.025); Urine Blood Negative (Negative); Urine Ketones Negative (Negative); Urine Protein Negative (Neg-Trace)
[2023-06-04 22:40] VITALS: BP 118/66; PULSE 63; RESP 18; O2SAT 99
[2023-06-05 02:01] LABS: CT PCR NOT DETECTED (Not Detect.); NG PCR NOT DETECTED (Not Detect.)
== END 2023-06-05 00:05 | disposition home or self-care (01) ==
PROVIDERS: Nurse Practitioner Family; Emergency Provider Internal Medicine
DX: N50.3 Cyst of epididymis (principal); N50.812 Left testicular pain
CPT/HCPCS: 0353U; 76870; 81003; 93975; 99284

== ENCOUNTER 2023-06-06 14:09 | Outpatient (AMB) | payer OTHER, SELFPAY ==
--- NOTE | 2023-06-06 14:28 | MHC.OFFVIS ---
Intake Intake Visit Reasons: chronic large prostate Intake Note: New Patient presents for initial visit for Urology Medications: Blood Thinner: Dust Collector Ore Crushing Required: No Accompanied by: Self / Same As Patient Allergies neostigmine [NEOSTIGMINE] Allergy (Intermediate, Verified 06/06/23 20:23) NAUSEA & VOMITING Medication List - Last Reconciled 06/06/23 by FILOMENA Maharaj sulfamethoxazole-trimethoprim 800-160 mg (Bactrim DS) 1 tab PO BID 14 days HPI HPI Comments History of Present Illness Details Rui Merino is a 22-year-old male patient. He presents to the office today as a new patient for new onset left-sided testicular paraesthesia. He discusses having seeked emergency room care approximately 2 days ago for this exact issue at which time a scrotal ultrasound was ordered. These results reviewed with the patient today. Bilateral epididymal head cysts. Otherwise both testes are unremarkable. No hydrocele or varicocele. Normal vascular flow seen to both testes and epididymis. In assessment of the patient today left epididymal head tenderness noted on exam otherwise no lesions, drainage, or masses palpated. He denies any known trauma. He does report being sexually active however is utilizing protection. He reports noting increased feeling of paresthesia to left testicle upon ejaculation as well as during long periods of standing. He denies pain. He denies any bothersome urinary issues or concerns. He reports having also been told by ER physician possible enlarged prostate. VANESSA offered however deferred. Discussed obtaining retroperitoneal ultrasound for further assessment evaluation. In office urinalysis results reviewed with the patient today. He denies urinary urgency, urinary frequency, incontinence, nocturia, hematuria, dysuria, foul smelling urine, changes to urinary stream, flank pain, fever, and or chills. He is happy with his current voiding parameters. [facility] Medical History Herpes Surgical History H/O hernia repair Social History Patient Tobacco Use Status: Tobacco use Unknown Review of Systems Const All systems reviewed & are unremarkable except as noted in HPI and below Physical Exam Const General: cooperative, healthy appearing, comfortable, no acute distress, well developed, alert and awake Orientation/consciousness: patient oriented x3 Limitations: no limitations HEENT Head: Yes normal to inspection, Yes normocephalic and Yes atraumatic Ears: hearing grossly normal bilaterally Eyes General: appearance normal, both eyes and all related structures Neck Neck: Yes normal visual inspection and Yes trachea midline Chest Chest palpation & inspection: normal inspection of the chest Resp Effort & Inspection: normal respiratory effort and able to speak in complete sentences Cardio Rate: regular rate GI Inspection: Yes normal to inspection General: Yes no CVA tenderness Male General Exam: Yes normal external exam Penis: normal penis and uncircumcised Meatus: meatus normal Scrotum: scrotum normal Testes: epididymal tenderness on the left Back/Spine/Pelvis Back: no CVA tenderness Skin General skin exam: no rashes or lesions noted Neuro General: patient oriented x3 Extrem General: Yes normal to inspection Psych Appearance: grossly normal and well kempt Mental Status: mental status grossly normal Speech and movement: Normal speech and movement present and Clear speech present Affect: normal affect Attitude: cooperative Thought process: Normal thought process present Thought content: Normal thought content present Insight: Good insight present (Psych) Judgement: Good judgement present (Psych) Results AMB Urinalysis, Automated UA Leukoctes 0 Lisa/uL Last Edit by [employer] on 06/06/23 15:16 UA Nitrite Negative Last Edit by [employer] on 06/06/23 15:16 UA Urobilinogen 0.2 mg/dL Last Edit by [employer] on 06/06/23 15:16 UA Protein 15 mg/dL Last Edit by [employer] on 06/06/23 15:16 UA pH 6.0 Last Edit by [employer] on 06/06/23 15:16 UA Blood 0 Jeovanny/uL Last Edit by [employer] on 06/06/23 15:16 UA Specific [place] 1.020 Last Edit by [employer] on 06/06/23 15:16 UA Ketone Negative Last Edit by [employer] on 06/06/23 15:16 UA Bilirubin 0 mg/dL Last Edit by [employer] on 06/06/23 15:16 UA Glucose 0 mg/dL Last Edit by [employer] on 06/06/23 15:16 Results Reviewed Results Reviewed: Laboratory Last Values Urine pH (Auto) 6.0 06/06/23 15:11 Specific [place] (Auto) 1.020 06/06/23 15:11 Urine Protein (Auto) 15 mg/dL 06/06/23 15:11 Glucose (UA)(Auto) 0 mg/dL 06/06/23 15:11 Urine Ketones (Auto) Negative 06/06/23 15:11 Urine Blood (Auto) 0 Jeovanny/uL 06/06/23 15:11 Urine Nitrite (Auto) Negative 06/06/23 15:11 Urine Bilirubin (Auto) 0 mg/dL 06/06/23 15:11 Urine Urobilinogen (Auto) 0.2 mg/dL 06/06/23 15:11 Leukocyte Esterase (Auto) 0 Lisa/uL 06/06/23 15:11 Date of Service: 06/04/23 EXAMINATION: US SCROTUM FINDINGS: RIGHT: Right testicle measures 5.2 x 2.5 x 3.2 cm, volume 2.2 mL. No focal testicular parenchymal lesions are visualized. Spectral Doppler analysis of the arterial and venous flow is normal in the right testis. Right epididymal head is normal in size. Small anechoic cyst in the epidural head measures 0.9 x 0.7 x 0.5 cm. No right hydrocele or varicocele is seen. Right epididymal Doppler flow is normal. LEFT: Left testicle measures 4.9 x 2.3 x 3.0 cm, volume 18 mL. No focal testicular parenchymal lesions are visualized. Spectral Doppler analysis of the arterial and venous flow is normal in the left testis. Left epididymal head is normal in size. A small epidural head cysts measuring 0.3 x 0.2 x 0.3 cm. No left hydrocele or varicocele is seen. Left epididymal Doppler flow is normal. IMPRESSION: 1. Bilateral epididymal head cysts. Otherwise both testes are unremarkable. No hydrocele or varicocele. Normal vascular flow seen to both testes and epididymis. Assessment & Plan Assessment & Plan (1) Epididymitis: Code(s): N45.1 - Epididymitis (2) Enlarged prostate: Code(s): N40.0 - Benign prostatic hyperplasia without lower urinary tract symptoms Plan In office urinalysis results reviewed with the patient today; as noted above. Recent scrotal ultrasound results reviewed with the patient today. Left-sided epididymal head tenderness noted on exam otherwise no other abnormalities noted. Reassurance provided. Start Bactrim as discussed and prescribed. Will obtain retroperitoneal ultrasound for further assessment evaluation. VANESSA offered however deferred. Patient denies any bothersome urinary issues. He reports be happy with current voiding parameters. Follow-up in 1 month with imaging to be completed prior; or sooner with any issues, concerns, and or questions. Orders: Orders AMB Urinalysis Automated Today Z13.9 - Encounter for screening, unspecified US retroperitoneal comp Today N40.0 - Benign prostatic hyperplasia without lower urinary tract symptoms Medications: New sulfamethoxazole-trimethoprim 800-160 mg (Bactrim DS) 1 tab PO BID 14 days 28 tabs 0RF N39.0 - Urinary tract infection, site not specified Patient Instructions: The patient had an opportunity to ask questions regarding the treatment plan. All questions were answered. Physical exam, labs, and imaging were discussed and reviewed in detail. As well as risks, benefits, and discussion of treatment choices. No major barriers to understanding were identified. The patient expressed understanding and agreement with the above treatment plan. The patient was made aware they should contact our office by phone for worsening of their current condition, the appearance of new symptoms, or with any questions or concerns. Compliance is encouraged with any medications and follow up testing that is ordered. It is a privilege to be allowed the opportunity to participate in? your urological care.? Again, if you have any questions or concerns If you have any questions or concerns please do not hesitate to contact me. The office is [phone]. This note is constructed using voice recognition software. While every effort has been made to ensure accuracy cpc coder errors may have been included. Yours sincerely, FILOMENA Maharaj Coding Level of Care Code New Pt Level 4 (56315) Diagnoses Epididymitis N45.1 Enlarged prostate N40.0
== END 2023-06-06 15:23 | disposition home or self-care (01) ==
PROVIDERS: Visit Provider Nurse Practitioner Family
DX: N45.1 Epididymitis (principal); N40.0 Benign prostatic hyperplasia without lower urinary tract symptoms; Z13.9 Encounter for screening, unspecified
CPT/HCPCS: 99204

== ENCOUNTER → 2023-06-06 14:09 | Outpatient (BNVA) | payer OTHER, SELFPAY | PROVIDERS: Visit Provider Nurse Practitioner Family | DX: N45.1 Epididymitis (principal); N40.0 Benign prostatic hyperplasia without lower urinary tract symptoms | CPT/HCPCS: 81003; 99202 ==

== ENCOUNTER 2023-06-26 13:15 | Emergency (ER) | payer OTHER, SELFPAY ==
[2023-06-26 13:32] VITALS: BP 104/64; PULSE 70; RESP 19; TEMP 36.2; O2SAT 97; BMI 26.6
--- NOTE | 2023-06-26 13:33 | ED.GENADULT ---
HPI - General Adult General Chief complaint: Abdominal Pain Stated complaint: r side pain Related Data Allergies Allergy/AdvReac Type Severity Reaction Status Date / Time neostigmine [NEOSTIGMINE] Allergy Intermediate NAUSEA & Verified 07/04/23 16:23 VOMITING PMFSH Past Medical History Medical History Herpes Surgical History H/O hernia repair Social History Social History Patient Tobacco Use Status: Tobacco use Unknown Physical Exam ED Vital Signs: BMI result Body Mass Index 26.6 Course Course Course Narrative: RME- 22 year old male presents for evaluation of right lower quadrant abdominal plan with nausea and vomiting. Plan for labs, UA. Potential imaging will be deferred to primary provider. Medical Decision Making Lab Data 06/26/23 14:33 06/26/23 14:33 Labs: Lab Results 06/26/23 Range/Units 14:33 WBC 6.8 (4.8-10.8) X10*3/uL RBC 5.17 (4.60-5.80) X10*6/uL Hgb 15.3 (14.0-18.0) g/dl Hct 44.7 (42.0-52.0) % MCV 86.5 (80.0-98.0) fL MCH 29.6 (27.0-33.0) pg MCHC 34.2 (31.0-36.0) g/dl RDW 11.3 (11.0-16.0) % Plt Count 233 (160-400) X10*3/uL MPV 9.0 L (9.4-12.4) fL Immature Gran % (Auto) 0.6 H (0.0-0.4) % Neut % (Auto) 54.0 (45-73) % Lymph % (Auto) 34.4 (20-40) % [place] % (Auto) 8.2 (2-11) % Eos % (Auto) 2.2 (0-4) % Baso % (Auto) 0.6 (0-2) % Lymph # (Auto) 2.4 (1.2-4.9) X10*3/uL [place] # (Auto) 0.6 (0.1-1.2) X10*3/uL Eos # (Auto) 0.2 (0.0-0.4) X10*3/uL Baso # (Auto) 0.0 (0.0-0.2) X10*3/uL Abs Immat Gran (auto) 0.04 H (0.00-0.03) X10*3/uL Absolute Neuts (auto) 3.7 (2.0-8.3) x10*3/uL Absolute Nucleated RBC 0.000 (0.0-0.012) X10*3/uL Nucleated RBC % (auto) 0.0 (0.0-0.2) /100WBC Sodium 140 (135-145) mmol/L Potassium 4.4 (3.3-5.1) mmol/L Chloride 107 (96-108) mmol/L Carbon Dioxide 26 (22-29) mmol/L Anion Gap 11 L (12-20) BUN 15 (9-16) mg/dL Creatinine 0.86 (0.5-1.4) mg/dL Estim Creat Clear Calc 124.8 Estimated GFR > 60 Random Glucose 94 (60-115) mg/dL Calcium 9.6 (8.4-10.2) mg/dL Total Bilirubin 1.2 H (0.0-1.0) mg/dL AST 18 (5-37) U/L ALT 16 (0-40) U/L Alkaline Phosphatase 73 (39-117) U/L Total Protein 8.0 (6.5-8.0) g/dL Albumin 4.6 (3.5-5.0) g/dL Lipase 10 (8-78) U/L Discharge Plan Discharge Clinical Impression: Abdominal pain Patient Disposition: Left W/O Completing Treatment Discharge Date/Time: 06/26/23 18:15
[2023-06-26 14:37] LABS: MANUAL DIFF FLAG NO
[2023-06-26 14:38] LABS: Basophils Percent Auto 0.6 % (0-2); Eosinophils Absolute Auto 0.2 X10*3/uL (0.0-0.4); Eosinophils Percent Auto 2.2 % (0-4); Hematocrit 44.7 % (42.0-52.0); Hemoglobin 15.3 g/dl (14.0-18.0); Imm Gran Abs Auto 0.04 X10*3/uL (0.00-0.03); Imm Gran Pct Auto 0.6 % (0.0-0.4); Lymphocytes Absolute Auto 2.4 X10*3/uL (1.2-4.9); Lymphocytes Percent Auto 34.4 % (20-40); Mean Corpuscular HGB Conc 34.2 g/dl (31.0-36.0); Mean Corpuscular Hemoglobin 29.6 pg (27.0-33.0); Mean Corpuscular Volume 86.5 fL (80.0-98.0); Monocytes Absolute Auto 0.6 X10*3/uL (0.1-1.2); Monocytes Percent Auto 8.2 % (2-11); Neutrophils Absolute Auto 3.7 x10*3/uL (2.0-8.3); Platelet Count 233 X10*3/uL (160-400); Red Blood Count 5.17 X10*6/uL (4.60-5.80); Red Cell Distribution Width 11.3 % (11.0-16.0); White Blood Count 6.8 X10*3/uL (4.8-10.8)
[2023-06-26 15:02] LABS: Alanine Aminotransferase 16 U/L (0-40); Albumin Level 4.6 g/dL (3.5-5.0); Alkaline Phosphatase 73 U/L (39-117); Anion Gap 11 (12-20); Aspartate Amino Transferase 18 U/L (5-37); Bilirubin Total 1.2 mg/dL (0.0-1.0); Blood Urea Nitrogen 15 mg/dL (9-16); Calcium 9.6 mg/dL (8.4-10.2); Carbon Dioxide 26 mmol/L (22-29); Chloride 107 mmol/L (96-108); Creatinine Clr Calc Pharmacy 124.8; Estimated Glomerular Filt Rate > 60; Glucose Random 94 mg/dL (60-115); Lipase 10 U/L (8-78); Potassium 4.4 mmol/L (3.3-5.1); Sodium 140 mmol/L (135-145)
== END 2023-06-26 18:15 | disposition left against medical advice (07) ==
PROVIDERS: Physician Assistant; Emergency Provider Emergency Medicine
DX: R10.31 Right lower quadrant pain (principal); R11.2 Nausea with vomiting, unspecified; Z79.899 Other long term (current) drug therapy
CPT/HCPCS: 36415; 80053; 83690; 85025; 99282; 99283

== ENCOUNTER 2023-06-27 05:58 | Emergency (ER) | payer OTHER, SELFPAY ==
[2023-06-27 06:01] VITALS: BP 138/77; PULSE 70; RESP 18; TEMP 36.8; O2SAT 98; BMI 26.6
--- NOTE | 2023-06-27 08:58 | ED_ITS ---
HPI - Male Genitourinary General Chief complaint: Urogenital-Male Stated complaint: Uro-gen male Time Seen by Provider: 06/27/23 08:58 Source: patient Mode of arrival: ambulatory Limitations: no limitations History of Present Illness HPI Narrative: Patient is a 22 year old assigned male at with a history of enlarged prostate presenting to the emergency department today with low back pain and pain with urination. Patient states that when he's standing for long periods of time at work or lifting things at work, he'll get right sided low back pain. Patient states that he gets that same right sided low back pain when he urinates. Patient states that he has been seen by a Urologist who told him he has an enlarged prostate and ordered imaging that is to be done on 06/29/2023. Patient states that he is sexually active, has herpes and genital warts, and is concerned about other STIs. Patient denies any dizziness, lightheadedness, abdominal pain, nausea, vomiting, fever, chills, blurry vision, double vision, loss of vision, chest pain, difficulty breathing, shortness of breath, night sweats, increased urinary frequency, increased urinary urgency, blood in his urine or stool, syncope or a near syncopal episode, recent trauma or falls, bowel incontinence, bladder incontinence, bowel retention, bladder retention, or any other complaints at this time. MD Complaint: dysuria Onset (ago): week(s) Relieving factors: none Exacerbating factors: none Related Data Sexually active: Yes Previous Rx's Medication Instructions Recorded sulfamethoxazole 800 1 tab PO BID 14 days #28 tabs 06/06/23 mg-trimethoprim 160 mg tablet (Bactrim DS) doxycycline hyclate 100 mg tablet 100 mg PO BID 7 days #14 tabs 06/27/23 naproxen 500 mg tablet 500 mg PO BID 7 days #14 tabs 06/27/23 Allergies Allergy/AdvReac Type Severity Reaction Status Date / Time neostigmine [NEOSTIGMINE] Allergy Intermediate NAUSEA & Verified 06/27/23 06:05 VOMITING Review of Systems Constitutional: Constitutional: Reports no additional constitutional complaints, Denies chills, Denies fever(s) and Denies night sweats Eyes: Eyes: Reports no additional eye complaints, Denies blurry vision, Denies change in vision, Denies diplopia, Denies eye discharge, Denies loss of vision and Denies eye pain ENT: Denies dizziness Cardiovascular: Cardiovascular: Reports no additional cardiovascular complaints, Denies chest pain, Denies lightheadedness, Denies Loss of Consciousness and Denies dyspnea Respiratory: Respiratory: Reports no additional respiratory complaints and Denies dyspnea Gastrointestinal: Gastrointestinal: Reports no additional gastrointestinal complaints, Denies abdominal pain, Denies melena, Denies hematochezia, Denies change in bowel habits and Denies change in stool character Genitourinary: Genitourinary: Reports no additional male genitourinary complaints, Denies hematuria, Denies oliguria, Denies difficulty urinating, Reports dysuria, Denies urinary frequency, Denies urinary hesitancy, Denies urinary incontinence and Denies urinary urgency Musculoskeletal: Musculoskeletal: Reports no additional musculoskeletal complaints, Reports back pain, Denies numbness and Denies tingling Neurologic: Denies dizziness, Denies loss of vision, Denies numbness and Denies tingling Psychiatric: Psychiatric: Reports no additional psychiatric complaints Endocrine: Endocrine: Reports no additional endocrine complaints Hematologic/Lymphatic: Hematologic/Lymphatic: Reports no additional hematologic/lymphatic complaints Allergic/Immunologic: Allergic/Immunologic: Reports no additional allergic/immunologic complaints PMFSH Past Medical History Attestation statement: The following information was validated with the patient. Source: old records reviewed and nursing notes reviewed Medical History Herpes Surgical History H/O hernia repair Social History Social History Patient Tobacco Use Status: Tobacco use Unknown Advance Directives: No Advance Directives Information Provided: No Physical Exam Vital Signs: Vital Signs: Last Vital Signs Temp 98.2 F 06/27/23 06:01 Pulse 70 06/27/23 06:01 Resp 18 06/27/23 06:01 BP 138/77 06/27/23 06:01 Pulse Ox 98 06/27/23 06:01 O2 Del Method Room Air 06/27/23 06:01 BMI result Body Mass Index 26.6 Const: General: cooperative, no acute distress, alert and awake Nutritional Appearance: well nourished Orientation/consciousness: patient oriented x3 Limitations: no limitations HEENT: Head: Yes normal to inspection and Yes atraumatic Ears: hearing grossly normal bilaterally and external ears normal General nose exam: Normal external nose present, no nasal discharge noted and no epistaxis Face and sinus: Yes normal facial exam, No abrasion and No laceration Mouth: Normal oral and palatal mucosa present, no drooling and no muffled voice Eyes: General: appearance normal, both eyes and all related structures Periorbital: periorbital findings normal Eyelids: Yes eyelids normal Conjunctivae: conjunctivae normal Pupils: Equal, round and reactive pupils present EOM: EOMs intact bilaterally Neck: Neck: Yes normal visual inspection, Yes full ROM and Yes no lymphadenopathy Chest: Chest palpation & inspection: normal inspection of the chest Resp: Effort & Inspection: normal respiratory effort and able to speak in complete sentences GI: Inspection: Yes normal to inspection : General: Yes no CVA tenderness Back/Spine/Pelvis: Back: no CVA tenderness Neuro: General: patient oriented x3 and moves all extremities Cranial nerves: Yes Equal, round and reactive pupils present Cognition (Neuro): normal cognition Motor exam (neuro): 5/5 motor strength present throughout Sensory Exam: Normal double simultaneous stimulation for sensation Coordination: [id number] test normal Extrem: General: Yes normal to inspection, Yes full ROM and Yes capillary refill normal Psych: Appearance: grossly normal Mental Status: mental status grossly normal Affect: normal affect Attitude: cooperative Thought process: Normal thought process present Thought content: Normal thought content present Insight: Good insight present (Psych) Medical Decision Making Medical Decision Making MDM Narrative: Patient is a 22 year old assigned male at with a history of an enlarged prostate presenting to the emergency department today with painful urination and low back pain. Patient's physical exam was unremarkable. Patient's urine showed no acute process. I explained my physical exam findings as well as all test results to the patient. I answered all questions asked by the patient. Given the patient's sexually active status and concern for STI, will treat. Additionally, will treat patient's probable musculoskeletal low back pain. I stressed the importance of the patient taking his medication as prescribed. I stressed the importance of the patient following up with his primary care provider and his Urologist. I stressed the importance of the patient returning to the emergency department immediately if his symptoms were to worsen or if he were to develop any dizziness, shortness of breath, difficulty breathing, chest pain, blurry vision, loss of vision, nausea, vomiting, abdominal pain, fever, chills, back pain, or any other complaints. Patient verbalized agreement and understanding with this treatment plan and discharge. Differential Diagnosis Differential Diagnoses: The differential diagnosis associated with the presentation includes Low back pain Dysuria STI Lab Data MDM Lab Attestation statement: I reviewed the patient's lab results. My interpretation of these studies and their corresponding values is that they are grossly normal. Labs: Lab Results 06/27/23 Range/Units 08:53 Urine Color Yellow Urine Appearance Cloudy Urine pH 7.0 (5.0-9.0) Ur Specific [place] >= 1.030 H (1.005-1.025) Urine Protein Negative (Neg-Trace) mg/dL Urine Glucose (UA) Negative (Negative) mg/dL Urine Ketones Trace (Negative) mg/dL Urine Blood Negative (Negative) Urine Nitrite Negative (Negative) Ur Leukocyte Esterase Negative (Negative) Urine RBC 0-2 (0-2) /HPF Urine WBC 0-5 (0-5) /HPF Ur Squamous Epith Cells 0-2 (0-2) /HPF Urine Bacteria None Seen (None Seen) Hyaline Casts 0-2 (0-2) /LPF Prescription Management I considered prescription management with: Pain Medication (patient prescribed pain medication for low back pain) and Antibiotic (patient prescribed antibiotic to cover for STI exposure) Discharge Plan Discharge Clinical Impression: Low back pain, Dysuria Patient Disposition: Home, Self-Care Instructions: Dysuria (ED), Back Pain (ED) Additional Instructions: Your STD testing is pending. We are treating you for it. We will call if your results are positive. We will not call if they are negative. Follow up with your primary care provider and your urologist. Return to the emergency department immediately if your symptoms worsen or if you develop any dizziness, shortness of breath, difficulty breathing, chest pain, blurry vision, loss of vision, nausea, vomiting, abdominal pain, fever, chills, back pain, or any other complaints. Prescriptions: New doxycycline hyclate 100 mg tablet 100 mg PO BID 7 Days Qty: 14 0RF naproxen 500 mg tablet 500 mg PO BID 7 Days Qty: 14 0RF No Action sulfamethoxazole-trimethoprim [Bactrim DS] 800-160 mg tablet 1 tab PO BID 14 Days Qty: 28 0RF [place] [facility] [place] (Call to establish and follow up with a primary care provider. If you already have a primary care provider, please follow up with them.) [facility] [place]] (Call to establish and follow up with a primary care provider. If you already have a primary care provider, please follow up with them.) [facility] [place] [facility]] (Call to establish and follow up with a primary care provider. If you already have a primary care provider, please follow up with them.) [facility] [place] Group] (Follow up with your urologist.) Stand Alone Forms: Work/School Release Print Language: Maldivian
[2023-06-27 09:11] LABS: Appearance Urine Cloudy; Color Urine Yellow; Glucose Urine UA Negative (Negative); Leukocyte Esterase Urine Negative (Negative); Nitrite Urine Negative (Negative); Specific Gravity - Urine >= 1.030 (1.005-1.025); Urine Blood Negative (Negative); Urine Ketones Trace mg/dL (Negative); Urine Protein Negative (Neg-Trace)
[2023-06-27 09:16] LABS: Bacteria Urine None Seen (None Seen); Hyaline Casts Urine 0-2 /LPF (0-2); RBC Urine 0-2 /HPF (0-2); Squamous Epithelial Cell Urine 0-2 /HPF (0-2); WBC Urine 0-5 /HPF (0-5)
[2023-06-27] MEDS: Doxycycline Monohydrate 100 MG CAPSULE PO (09:48)
[2023-06-27] MEDS: cefTRIAXone sodium 500 MG, Lidocaine HCl 1 % MPF 1 ML IM (09:49)
[2023-06-27] MEDS: Ketorolac Tromethamine 15 MG/ML VIAL IM (09:50)
[2023-06-27 11:26] LABS: CT PCR NOT DETECTED (Not Detect.); NG PCR NOT DETECTED (Not Detect.)
== END 2023-06-27 10:02 | disposition home or self-care (01) ==
PROVIDERS: Emergency Provider Emergency Medicine Emergency Medical Services
DX: M54.50 Low back pain, unspecified (principal); R30.0 Dysuria; Z79.899 Other long term (current) drug therapy
CPT/HCPCS: 0353U; 81001; 96372; 99283; 99284; J0696; J1885

== ENCOUNTER 2023-06-29 14:57 | Outpatient (REF) | payer OTHER, SELFPAY ==
--- NOTE | ~2023-06-29 | US_ITS ---
EXAMINATION: US RETROPERITONEAL LIMITED (RENAL ONLY) CLINICAL INFORMATION: Benign prostatic hyperplasia without lower urinary tract symptoms. COMPARISON: CT abdomen and pelvis 04/24/2023. TECHNIQUE: Real-time imaging of the kidneys. FINDINGS: RIGHT KIDNEY: 10.6 x 6.8 x 5.8 cm (SAG x AP x TRV). The kidney is normal in size, contour, and echogenicity. Renal cortical thickness is normal. No calculi or focal parenchymal lesions. No hydronephrosis. LEFT KIDNEY: 9.6 x 6.4 x 5.9 cm (SAG x AP x TRV). The kidney is normal in size, contour, and echogenicity. Renal cortical thickness is normal. No calculi or focal parenchymal lesions. No hydronephrosis. Please note, that the bladder was not filled and therefore was not evaluated in the prostate size could not be measured. The patient is being rescheduled for a ultrasound of the bladder and prostate. US/US renal BI IMPRESSION: Normal-appearing kidneys.
== END 2023-06-29 14:58 | disposition home or self-care (01) ==
LOC: HO.US 14:57
PROVIDERS: Visit Provider Nurse Practitioner Family
DX: N40.0 Benign prostatic hyperplasia without lower urinary tract symptoms (principal)
CPT/HCPCS: 76775

== ENCOUNTER 2023-07-04 | Outpatient (REF) | payer OTHER, SELFPAY | END 2023-07-04 00:01 | LOC: CF | PROVIDERS: Visit Provider Nurse Practitioner Family | DX: N45.1 Epididymitis (principal) | CPT/HCPCS: 81003; 99212 ==

== ENCOUNTER 2023-07-04 15:25 | Outpatient (AMB) | payer OTHER, SELFPAY ==
--- NOTE | 2023-07-04 15:41 | MHC.OFFVIS ---
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 He presents to the office today for follow-up of his left-sided testicular paresthesia, epididymitis, and potential enlarged prostate. Of note, patient was seen approximately 1 month ago at which time he was treated with doxycycline 100 mg b.i.d. for epididymitis. When asked he reports testicular paresthesia and discomfort he had been experiencing has since subsided. He has since completed antibiotic therapy. Retroperitoneal ultrasound was ordered during last office visit for further assessment evaluation of potential enlarged prostate noted by ER physician however it appears when patient attended ultrasound appointment his bladder was not full therefore he has been rescheduled for his bladder ultrasound on July 18. However renal ultrasound was ordered and performed. These results reviewed with the patient today. Bilateral kidneys with no calculi, lesions, and or hydronephrosis noted. He otherwise denies any bothersome urinary issues or concerns. In office urinalysis results reviewed with the patient today. He denies urinary urgency, urinary frequency, incontinence, nocturia, hematuria, dysuria, foul smelling urine, changes to urinary stream, flank pain, fever, and or chills. He is happy with his current voiding parameters. [facility] Medical History Herpes Surgical History H/O hernia repair Social History Patient Tobacco Use Status: Tobacco use Unknown Review of Systems Const All systems reviewed & are unremarkable except as noted in HPI and below Physical Exam Const General: cooperative, healthy appearing, comfortable, no acute distress, well developed, alert and awake Orientation/consciousness: patient oriented x3 Limitations: no limitations HEENT Head: Yes normal to inspection, Yes normocephalic and Yes atraumatic Ears: hearing grossly normal bilaterally Eyes General: appearance normal, both eyes and all related structures Neck Neck: Yes normal visual inspection and Yes trachea midline Chest Chest palpation & inspection: normal inspection of the chest Resp Effort & Inspection: normal respiratory effort and able to speak in complete sentences Cardio Rate: regular rate GI Inspection: Yes normal to inspection General: Yes no CVA tenderness Male General Exam: Yes normal external exam Penis: normal penis and uncircumcised Meatus: meatus normal Scrotum: scrotum normal Testes: epididymal tenderness on the left Back/Spine/Pelvis Back: no CVA tenderness Skin General skin exam: no rashes or lesions noted Neuro General: patient oriented x3 Extrem General: Yes normal to inspection Psych Appearance: grossly normal and well kempt Mental Status: mental status grossly normal Speech and movement: Normal speech and movement present and Clear speech present Affect: normal affect Attitude: cooperative Thought process: Normal thought process present Thought content: Normal thought content present Insight: Good insight present (Psych) Judgement: Good judgement present (Psych) Results AMB Urinalysis, Automated UA Leukoctes 0 Lisa/uL Last Edit by [employer] on 07/04/23 16:05 UA Nitrite Negative Last Edit by [employer] on 07/04/23 16:05 UA Urobilinogen 0.2 mg/dL Last Edit by [employer] on 07/04/23 16:05 UA Protein 15 mg/dL Last Edit by [employer] on 07/04/23 16:05 UA pH 6.0 Last Edit by [employer] on 07/04/23 16:05 UA Blood 0 Jeovanny/uL Last Edit by [employer] on 07/04/23 16:05 UA Specific [place] 1.025 Last Edit by [employer] on 07/04/23 16:05 UA Ketone Negative Last Edit by [employer] on 07/04/23 16:05 UA Bilirubin 0 mg/dL Last Edit by [employer] on 07/04/23 16:05 UA Glucose 0 mg/dL Last Edit by [employer] on 07/04/23 16:05 Results Reviewed Results Reviewed: Laboratory Last Values Urine pH (Auto) 6.0 07/04/23 16:04 Specific [place] (Auto) 1.025 07/04/23 16:04 Urine Protein (Auto) 15 mg/dL 07/04/23 16:04 Glucose (UA)(Auto) 0 mg/dL 07/04/23 16:04 Urine Ketones (Auto) Negative 07/04/23 16:04 Urine Blood (Auto) 0 Jeovanny/uL 07/04/23 16:04 Urine Nitrite (Auto) Negative 07/04/23 16:04 Urine Bilirubin (Auto) 0 mg/dL 07/04/23 16:04 Urine Urobilinogen (Auto) 0.2 mg/dL 07/04/23 16:04 Leukocyte Esterase (Auto) 0 Lisa/uL 07/04/23 16:04 Date of Service: 06/29/23 EXAMINATION: US RETROPERITONEAL LIMITED (RENAL ONLY) FINDINGS: RIGHT KIDNEY: 10.6 x 6.8 x 5.8 cm (SAG x AP x TRV). The kidney is normal in size, contour, and echogenicity. Renal cortical thickness is normal. No calculi or focal parenchymal lesions. No hydronephrosis. LEFT KIDNEY: 9.6 x 6.4 x 5.9 cm (SAG x AP x TRV). The kidney is normal in size, contour, and echogenicity. Renal cortical thickness is normal. No calculi or focal parenchymal lesions. No hydronephrosis. Please note, that the bladder was not filled and therefore was not evaluated in the prostate size could not be measured. The patient is being rescheduled for a ultrasound of the bladder and prostate. IMPRESSION: Normal-appearing kidneys. Assessment & Plan Assessment & Plan (1) Epididymitis: Code(s): N45.1 - Epididymitis Plan In office urinalysis results reviewed with the patient today; as noted above. Patient reports significant improvement discomfort and paresthesia he had been experiencing Reassurance provided Renal ultrasound results reviewed with the patient today. Will call patient with bladder ultrasound results when available. Discussed follow-up p.r.n. however patient would like to continue with surveillance monitoring of epididymitis and potential enlarged prostate noted by ER physician Discussed, educated, encouraged on the importance of drinking plenty of water daily. Will obtain retroperitoneal ultrasound in 1 year. Follow-up in 1 year with imaging to be completed prior; or sooner with any issues, concerns, and or questions. Orders: Orders AMB Urinalysis Automated 07/04/23 Z13.9 - Encounter for screening, unspecified US retroperitoneal comp 364 Days N40.0 - Benign prostatic hyperplasia without lower urinary tract symptoms Patient Instructions: The patient had an opportunity to ask questions regarding the treatment plan. All questions were answered. Physical exam, labs, and imaging were discussed and reviewed in detail. As well as risks, benefits, and discussion of treatment choices. No major barriers to understanding were identified. The patient expressed understanding and agreement with the above treatment plan. The patient was made aware they should contact our office by phone for worsening of their current condition, the appearance of new symptoms, or with any questions or concerns. Compliance is encouraged with any medications and follow up testing that is ordered. It is a privilege to be allowed the opportunity to participate in? your urological care.? Again, if you have any questions or concerns If you have any questions or concerns please do not hesitate to contact me. The office is [phone]. This note is constructed using voice recognition software. While every effort has been made to ensure accuracy sap [employer]ico architect errors may have been included. Yours sincerely, FILOMENA Maharaj Coding Level of Care Code Est Pt Level 3 (76198) Diagnoses Epididymitis N45.1
== END 2023-07-04 16:21 | disposition home or self-care (01) ==
PROVIDERS: Visit Provider Nurse Practitioner Family
DX: N45.1 Epididymitis (principal)
CPT/HCPCS: 99213

== ENCOUNTER 2023-07-18 12:35 | Outpatient (REF) | payer OTHER, SELFPAY ==
--- NOTE | ~2023-07-18 | US_ITS ---
EXAMINATION: US PELVIS LIMITED (BLADDER) CLINICAL INFORMATION: Benign prostatic hyperplasia without lower urinary tract symptoms. COMPARISON: Renal ultrasound 06/29/2023. CT abdomen and pelvis without contrast 04/24/2023. TECHNIQUE: Real-time imaging of the bladder. FINDINGS: BLADDER: Well distended and normal. Bilateral ureteral jets are demonstrated. Prevoid bladder volume is 290 mL. Postvoid bladder volume is 26.7 mL. The prostate volume is 20.1 mL. US/US bladder IMPRESSION: Small post void residual. Nonenlarged prostate.
== END 2023-07-18 12:36 | disposition home or self-care (01) ==
LOC: HO.US 12:35
PROVIDERS: Visit Provider Nurse Practitioner Family
DX: N40.0 Benign prostatic hyperplasia without lower urinary tract symptoms (principal)
CPT/HCPCS: 76857

== ENCOUNTER 2023-10-02 07:46 | Emergency (ER) | payer MEDICAID, SELFPAY ==
--- NOTE | ~2023-10-02 | US_ITS ---
EXAMINATION: US SCROTUM CLINICAL INFORMATION: Swelling. COMPARISON: None available. TECHNIQUE: A sonogram of the scrotum was performed assessing meng-scale appearance and color Doppler flow. Spectral Doppler analysis of the arterial and venous flow were performed in the testes bilaterally. FINDINGS: RIGHT: Right testicle measures 5 x 2.5 x 3 cm, volume : 20 mL. No focal testicular parenchymal lesions are visualized. Spectral Doppler analysis of the arterial and venous flow is normal in the right testis. Right epididymal head cyst measuring 1 x 0.6 x 0.6 cm No right hydrocele or varicocele is seen. Right epididymal Doppler flow is normal. LEFT: Left testicle measures 4.8 x 2.5 x 3.3 cm, volume 20 mL. No focal testicular parenchymal lesions are visualized. Spectral Doppler analysis of the arterial and venous flow is normal in the left testis. Left epididymal head is normal in size. No left hydrocele or varicocele is seen. Left epididymal Doppler flow is normal. US/US scrotum doppler IMPRESSION: Right epididymal head cyst otherwise unremarkable exam.
--- NOTE | ~2023-10-02 | US_ITS ---
EXAMINATION: US SCROTUM CLINICAL INFORMATION: Swelling. COMPARISON: None available. TECHNIQUE: A sonogram of the scrotum was performed assessing meng-scale appearance and color Doppler flow. Spectral Doppler analysis of the arterial and venous flow were performed in the testes bilaterally. FINDINGS: RIGHT: Right testicle measures 5 x 2.5 x 3 cm, volume : 20 mL. No focal testicular parenchymal lesions are visualized. Spectral Doppler analysis of the arterial and venous flow is normal in the right testis. Right epididymal head cyst measuring 1 x 0.6 x 0.6 cm No right hydrocele or varicocele is seen. Right epididymal Doppler flow is normal. LEFT: Left testicle measures 4.8 x 2.5 x 3.3 cm, volume 20 mL. No focal testicular parenchymal lesions are visualized. Spectral Doppler analysis of the arterial and venous flow is normal in the left testis. Left epididymal head is normal in size. No left hydrocele or varicocele is seen. Left epididymal Doppler flow is normal. US/US scrotum IMPRESSION: Right epididymal head cyst otherwise unremarkable exam.
[2023-10-02 07:50] VITALS: BP 125/72; PULSE 62; RESP 18; TEMP 36.7; O2SAT 99
--- NOTE | 2023-10-02 08:14 | ED_ITS ---
HPI - Male Genitourinary General Chief complaint: Urogenital-Male Stated complaint: Hernia? Time Seen by Provider: 10/02/23 08:12 Source: patient Mode of arrival: ambulatory Limitations: no limitations History of Present Illness HPI Narrative: 22 yo male with PMH of herpes, prior epididymal cysts diagnosed here with c/o L groin pain and lump felt after heavy lifting. He has been lifting heavier things at work recently which has made it worse. Issues intermittent x months. Complaint: other (groin pain) Onset (ago): month(s) Duration: progressively worsening Location: left inguinal region Severity: mild Quality: aching Relieving factors: rest Exacerbating factors: other (exertion and heavy lifting) Context: lifting Associated symptoms: Reports denies other symptoms Related Data Allergies Allergy/AdvReac Type Severity Reaction Status Date / Time neostigmine [NEOSTIGMINE] Allergy Intermediate NAUSEA & Verified 10/02/23 07:48 VOMITING Review of Systems Review of Systems: Constitutional : No Weight loss, No Fever, No Chills ENT/Mouth : No sore throat, No Rhinorrhea Eyes: No Swelling, No Redness Cardiovascular : No Chest Pain, No SOB, NoEdema Respiratory : No Cough, No Sputum, No Wheezing Gastrointestinal : no Nausea, no Vomiting, no Diarrhea, positive groin pain Pain, No Hematochezia, No Melena Genitourinary : No Dysuria, No Urinary Frequency, No Hematuria, No Urgency Musculoskeletal : No joint pain, No Myalgias, No Joint Swelling Skin : No Skin Lesions, No rash Neuro : No Weakness, No Numbness, No Dizziness, No Headache All other systems reviewed and are negative. [facility] Past Medical History Attestation statement: The following information was validated with the patient. Source: old records reviewed Medical History Epididymitis Herpes Surgical History H/O hernia repair Social History Social History Patient Tobacco Use Status: Tobacco use Unknown Advance Directives: No Advance Directives Information Provided: Yes Physical Exam Vital Signs: Vital Signs: Last Vital Signs Temp 97.8 F 10/02/23 09:22 Pulse 50 10/02/23 09:22 Resp 16 10/02/23 09:22 BP 110/50 L 10/02/23 09:22 Pulse Ox 98 10/02/23 09:22 O2 Del Method Room Air 10/02/23 09:22 BMI result Body Mass Index 0.3 Appearance: Alert. Oriented X3. No acute distress. Eyes: Pupils equal, round and reactive to light. ENT: Pharynx normal. Neck: Normal inspection. Neck supple. CVS: Normal heart rate and rhythm. Pulses normal. Respiratory: No respiratory distress. Breath sounds normal. Abdomen: Soft and nontender. L inguinal hernia noted but soft and reducible easily one attempt Skin: Skin warm and dry. Normal skin color. Normal skin turgor. Extremities: No lower extremity edema. Neuro: Oriented X 3. No motor deficit. No sensory deficit. 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 He does have an inguinal hernia but no abdominal pain no n/v. It is soft and reducible with benign abdominal exam. Will obtain US and instruct him how to reduce it refer to surgery. No signs of incarceration or strangulation Differential Diagnosis Differential Diagnoses: The differential diagnosis associated with the presentation includes hernia Admission/Observation Consideration of admission/observation: Escalation of care including admission/observation considered easily reduced can go home with outpatient follow up Independent Interpretation I performed an independent interpretation of an: Ultrasound (no torsion) Radiology Impression Discussion of test interpretation with radiology: I have reviewed the radiologist's reading. Independent Historian Clinical information obtained from an independent historian. History obtained from or confirmed by: Spouse External Record Review External record reviewed: Inpatient record Discharge Plan Discharge Clinical Impression: Inguinal hernia Qualifiers: Obstruction and gangrene presence: without obstruction or gangrene Laterality: unilateral Recurrence: non-recurrent Qualified Code(s): K40.90 - Unilateral inguinal hernia, without obstruction or gangrene, not specified as recurrent Patient Disposition: Home, Self-Care Instructions: Inguinal Hernia (ED) Additional Instructions: no straining, no lifting more than 10lbs. call today to follow up with the surgeon listed below. lay flat to reduce the hernia with slow gentle motion gently push the hernia back up into the stomach. Referrals: Collin Jerez MD [Physician] - Stand Alone Forms: Work/School Release Discharge Date/Time: 10/02/23 09:23
[2023-10-02 09:22] VITALS: BP 110/50; PULSE 50; RESP 16; TEMP 36.6; O2SAT 98
== END 2023-10-02 09:23 | disposition home or self-care (01) ==
PROVIDERS: Emergency Provider Emergency Medicine
DX: S39.91XA Unspecified injury of abdomen, initial encounter (principal); K40.90 Unilateral inguinal hernia, without obstruction or gangrene, not specified as recurrent; R10.30 Lower abdominal pain, unspecified; R10.2 Pelvic and perineal pain; X50.0XXA Overexertion from strenuous movement or load, initial encounter; Y93.9 Activity, unspecified; Y92.9 Unspecified place or not applicable; Y99.0 Civilian activity done for income or pay
CPT/HCPCS: 76870; 93975; 99283; 99284

== ENCOUNTER 2023-10-10 15:21 | Outpatient (AMB) | payer SELFPAY ==
[2023-10-10 15:26] VITALS: BP 126/72; PULSE 89; BMI 28.9
--- NOTE | 2023-10-10 15:26 | A.OFFVIS_ITS ---
Intake Vital Signs 10/10/23 15:26 Height 5 ft 7 in Weight 184 lb 11.958 oz BMI 28.9 BP 126/72 Blood Pressure Location Lt brachial Position Sitting Pulse 89 Intake Visit Reasons: Hernia, C ER visit 10/02/23 Intake Note: Patient referred after ER visit for Lt abd pain. Pain spreads down to groin area. Floorhand Required: No Accompanied by: Self / Same As Patient Allergies neostigmine [NEOSTIGMINE] Allergy (Intermediate, Verified 10/10/23 15:28) NAUSEA & VOMITING HPI HPI Comments History of Present Illness Details Patient presents because of chronic/persistent left scrotal/testicular pain. Patient has had an extensive workup for this including multiple CT scans and ultrasounds. It was also seen by Urology several months ago for similar persistent complaints. He denies any GI issues or complaints. He is tolerating a diet. I am regular bowel habits. He is not noticed a bulge or swelling in his left groin area. Chart was reviewed and patient evaluated [facility] Medical History Epididymitis Herpes Surgical History H/O hernia repair Social History Alcohol intake: never Patient Tobacco Use Status: Tobacco use Unknown Physical Exam Vital Signs: Last Vital Signs Pulse 89 10/10/23 15:26 BP 126/72 10/10/23 15:26 BMI result Body Mass Index 28.9 Const Other: Well-developed male in no acute distress GI Other: Patient was examined while supine and standing with Valsalva. Abdomen is soft, benign. Bilateral groin exam is negative for any hernia. Genitalia left scrotal/testicular pain but no obvious mass demonstrated. Assessment & Plan Assessment & Plan (1) Scrotal pain: Code(s): N50.82 - Scrotal pain Plan At present, patient has no inguinal hernia demonstrated which would account for his scrotal symptoms. No acute surgical issues at this time. Patient will be re- referred to Urology for further workup regarding his persistent scrotal symptoms. All questions answered. Coding Level of Care Code New Pt Level 4 (74669) Diagnoses Scrotal pain N50.82
== END 2023-10-10 15:40 | disposition home or self-care (01) ==
PROVIDERS: Visit Provider Surgery
DX: N50.82 Scrotal pain (principal)
CPT/HCPCS: 99204

== ENCOUNTER → 2023-10-10 15:21 | Outpatient (BNVA) | payer SELFPAY | PROVIDERS: Visit Provider Surgery | DX: N50.82 Scrotal pain (principal) | CPT/HCPCS: 99202 ==